=== PATIENT | female | born 1970 | race Caucasian/White ===

== ENCOUNTER 2016-10-08 03:39 | Emergency (ER) | payer MEDICARE, MEDICAID ==
[~2016-10-08] VITALS: Ht 160 cm; Wt 81.6 kg
[~2016-10-08 03:39] MED LIST: ARIP20TA8 PO; DULO60CA45 PO; QUET200T PO; TRAZ-147 PO
[2016-10-08 03:57] VITALS: BP 133/79
== END 2016-10-08 05:05 | disposition left against medical advice (07) ==
LOC: ER 03:47
DX: Z53.21 Procedure and treatment not carried out due to patient leaving prior to being seen by health care provider (principal)
CPT/HCPCS: A4606; Z7610

== ENCOUNTER 2016-10-11 17:32 | Emergency (ER) | payer MEDICARE, MEDICAID ==
[~2016-10-11] VITALS: Ht 165.1 cm; Wt 81.6 kg
[2016-10-11 20:23] LABS: BASOPHILS % (AUTO) 0.3 % (0.0-2.0); DIFF TOTAL % 100 %; EOSINOPHILS # (AUTO) 0.3 /CMM (0.0-0.7); EOSINOPHILS % (AUTO) 2.7 % (0.0-6.0); HEMATOCRIT 35 % (33-45); HEMOGLOBIN 12.6 g/dL (11.5-14.8); LYMPHOCYTES # (AUTO) 2.1 /CMM (0.8-4.8); LYMPHOCYTES % (AUTO) 21.2 % (20.0-44.0); MEAN CORPUSCULAR HEMOGLOBIN 34 PG (26.0-33.0); MEAN CORPUSCULAR HGB CONC 36 g/dl (31.0-36.0); MEAN CORPUSCULAR VOLUME 96 fL (82-100); MONOCYTES # (AUTO) 0.8 /CMM (0.1-1.30); MONOCYTES % (AUTO) 7.8 % (2.0-12.0); NEUTROPHILS # (AUTO) 6.8 /CMM (1.8-8.9); PLATELET COUNT (AUTO) 235 /CMM (150-450); WHITE BLOOD COUNT (AUTO) 9.9 K/uL (4.3-11.0)
[2016-10-11 20:29] LABS: ANION GAP 10 (5-14); CALCIUM, SERUM 8.9 mg/dL (8.5-10.1); CARBON DIOXIDE 31 mmol/L (21-32); CHLORIDE 103 mmol/L (98-107); CREATININE 0.7 mg/dL (0.6-1.3); GFR 90 mL/min (>60); GLUCOSE 110 mg/dL (74-106); POTASSIUM 3.8 mmol/L (3.5-5.1); SODIUM SERUM 140 mmol/L (136-145); UREA NITROGEN, BLOOD 9 mg/dL (7-18)
[2016-10-11 20:47] LABS: ALANINE AMINOTRANSFERASE 38 U/L (12-78); ALBUMIN 3.5 g/dL (3.4-5.0); ASPARTATE AMINOTRANSFERASE 20 U/L (15-37); BILIRUBIN,DIRECT 0.1 mg/dL (0.0-0.2); BILIRUBIN,TOTAL 0.3 mg/dL (0.2-1.0); INDIRECT BILIRUBIN 0.2 mg/dL (0.0-1.1); SALICYLATE 4.9 mg/dL (2.8-20.0); TOTAL PROTEIN, SERUM 7.1 g/dL (6.4-8.2)
[2016-10-11 21:00] LABS: ACETAMINOPHEN 0 ug/ml (10-30)
[2016-10-11] MEDS ORDERED: LORAZEPAM 1 MG TABLET ONE (21:17)
[2016-10-11 21:26] LABS: KETONES,URINE TRACE (NEGATIVE); LEUKOCYTE ESTERASE ,URINE TRACE (NEGATIVE)
[2016-10-11] MEDS ORDERED: LORAZEPAM 1 MG TABLET PO ONE (21:30)
[2016-10-11 21:31] LABS: CANNABINOID, URINE NEGATIVE (NEGATIVE); PHENCYCLIDINE SCREEN,URINE NEGATIVE (NEGATIVE)
[2016-10-11 21:38] LABS: ADD UA MICROSCOPIC YES
[2016-10-11 21:48] LABS: ADD URINE CULTURE NO; RBC,URINE 0-2 /HPF (0-2); WBC,URINE 0-2 /HPF (0-3)
[2016-10-11] MEDS ORDERED: OLANZAPINE 10 MG VIAL IM ONE ×2 (21:53→22:00)
[2016-10-11 22:55] VITALS: BP 131/80
== END 2016-10-11 23:05 ==
LOC: ER 17:34
DX: F20.0 Paranoid schizophrenia (principal); F32.9 Major depressive disorder, single episode, unspecified; K21.9 Gastro-esophageal reflux disease without esophagitis; F17.200 Nicotine dependence, unspecified, uncomplicated; Z88.2 Allergy status to sulfonamides
CPT/HCPCS: 36415; 73564; 80048; 80076; 80305; 81001; 84703; 85025; 96372; 99285; A4606; G0480; G0481; G0482; J3490; 81000-TC; G6038-TC; G6039-TC; G6040-TC; Z7610

== ENCOUNTER 2017-01-29 09:49 | Emergency (ER) | payer MEDICARE, MEDICAID ==
[~2017-01-29] VITALS: Ht 167.6 cm; Wt 72.6 kg
--- NOTE | 2017-01-29 10:05 | NUR ---
PT BIB SELF VERBALIZED "SOMEONE AND IM SUICIDAL." NO HI. NO PLANS ON SI DOESNT WANT TO TALK ABOUT IT. VSS. AWAITING MD ORDER.
--- NOTE | 2017-01-29 10:31 | NUR ---
AT BEDSIDE FOR EVAL
[2017-01-29 10:56] LABS: BASOPHILS % (AUTO) 0.5 % (0.0-2.0); EOSINOPHILS # (AUTO) 0.1 /CMM (0.0-0.7); EOSINOPHILS % (AUTO) 1.3 % (0.0-6.0); HEMATOCRIT 43 % (33-45); HEMOGLOBIN 14.9 g/dL (11.5-14.8); LYMPHOCYTES % (AUTO) 28.3 % (20.0-44.0); MEAN CORPUSCULAR HEMOGLOBIN 32 PG (26.0-33.0); MEAN CORPUSCULAR HGB CONC 35 g/dl (31.0-36.0); MEAN CORPUSCULAR VOLUME 93 fL (82-100); MONOCYTES # (AUTO) 0.5 /CMM (0.1-1.30); NEUTROPHILS # (AUTO) 4.3 /CMM (1.8-8.9); NEUTROPHILS % (AUTO) 62.9 % (43.0-81.0); PLATELET COUNT (AUTO) 257 /CMM (150-450); RDW COEFFICIENT OF VARIATION 13.2 (11.5-15.0); RED BLOOD CELL COUNT(AUTO) 4.62 MIL/uL (4.0-5.2); WHITE BLOOD COUNT (AUTO) 6.9 K/uL (4.3-11.0)
[2017-01-29 11:02] LABS: CALCIUM, SERUM 9.1 mg/dL (8.5-10.1); CARBON DIOXIDE 29 mmol/L (21-32); CHLORIDE 104 mmol/L (98-107); CREATININE 0.7 mg/dL (0.6-1.3); GFR 90 mL/min (>60); GLUCOSE 95 mg/dL (74-106); POTASSIUM 3.9 mmol/L (3.5-5.1); SODIUM SERUM 139 mmol/L (136-145); UREA NITROGEN, BLOOD 10 mg/dL (7-18)
[2017-01-29 11:07] LABS: ALANINE AMINOTRANSFERASE 29 U/L (12-78); ALBUMIN 3.9 g/dL (3.4-5.0); ALCOHOL, BLOOD < 3 mg/dL (0-0); ALKALINE PHOSPHATASE 122 U/L (46-116); ASPARTATE AMINOTRANSFERASE 19 U/L (15-37); BILIRUBIN,DIRECT 0.1 mg/dL (0.0-0.2); BILIRUBIN,TOTAL 0.4 mg/dL (0.2-1.0); SALICYLATE 5.3 mg/dL (2.8-20.0); TOTAL PROTEIN, SERUM 7.5 g/dL (6.4-8.2)
[2017-01-29 11:08] LABS: ACETAMINOPHEN 0 ug/ml (10-30)
[2017-01-29 11:54] LABS: APPEARANCE,URINE Clear (CLEAR); BILIRUBIN,URINE Negative (NEGATIVE); BLOOD, URINE Negative Ery/uL (NEGATIVE); COLOR,URINE Yellow (YELLOW); KETONES,URINE Negative (NEGATIVE); LEUKOCYTE ESTERASE ,URINE Negative (NEGATIVE); NITRITE, URINE Negative (NEGATIVE); PROTEIN,URINE Negative (NEGATIVE); UGLUCOSE Negative (NEGATIVE); UROBILINOGEN,URINE 0.2 EU/dL (0.2)
--- NOTE | 2017-01-29 12:01 | NUR ---
CALLED [facility] FOR PSYCH EVAL, ETA 1 HOUR
[2017-01-29 12:15] LABS: CANNABINOID, URINE NEGATIVE (NEGATIVE); PHENCYCLIDINE SCREEN,URINE NEGATIVE (NEGATIVE)
--- NOTE | 2017-01-29 13:00 | NUR ---
[facility] PSYCH EVAL AT BEDSIDE
--- NOTE | 2017-01-29 16:29 | NUR ---
PT DISCHARGE . NO IMMINENT THREAT TO SELF AND OTHERS. DENIES SI AND HI. SEEN BY [facility] RAIL CAR WELDER ONLY AVAILABLE BED IN [place]. PT REFUSED LEFT VOLUNTARY. STABLE CONDITION.
[2017-01-29 16:31] VITALS: BP 120/70
== END 2017-01-29 16:31 | disposition home or self-care (01) ==
LOC: ER 09:52
DX: F32.9 Major depressive disorder, single episode, unspecified (principal); F20.0 Paranoid schizophrenia; R45.851 Suicidal ideations; F17.200 Nicotine dependence, unspecified, uncomplicated; F31.9 Bipolar disorder, unspecified; K21.9 Gastro-esophageal reflux disease without esophagitis; Z59.0 Homelessness; Z88.2 Allergy status to sulfonamides
CPT/HCPCS: 36415; 80048-TC; 80076-TC; 80305; 81000-TC; 84703-TC; 85025-TC; A4606; G0480; G6039-TC; Z7610

== ENCOUNTER 2017-03-15 07:34 | Emergency (ER) | payer MEDICAID, MEDICARE ==
[~2017-03-15] VITALS: Ht 167.6 cm; Wt 74.8 kg
[2017-03-15] MEDS ORDERED: LORAZEPAM 1 MG TABLET ONE (07:49)
--- NOTE | 2017-03-15 07:50 | NUR ---
pt to ed room 08. L KNEE PAIN X 5 YEARS. SUICIDAL IDEATION WITH NO PLAN. a/a/o. vs wnl. side rails up. hob elevated. SI precautiosn initiated. personal belongigs moved from patient's room. seen and evaluated by ed provider.
--- NOTE | 2017-03-15 07:56 | NUR ---
SAIL FINISHER HAND AT BEDSIDE
[2017-03-15] MEDS ORDERED: LORAZEPAM 1 MG TABLET PO ONE (08:00)
[2017-03-15 08:10] LABS: CREATININE 0.5 mg/dL (0.6-1.3); POTASSIUM 3.7 mmol/L (3.5-5.1)
[2017-03-15 08:16] LABS: ALBUMIN 3.7 g/dL (3.4-5.0); BILIRUBIN,DIRECT 0.1 mg/dL (0.0-0.2); BILIRUBIN,TOTAL 0.3 mg/dL (0.2-1.0); SALICYLATE 5.8 mg/dL (2.8-20.0); TOTAL PROTEIN, SERUM 7.3 g/dL (6.4-8.2)
[2017-03-15 08:22] LABS: BASOPHILS # (AUTO) 0.1 /CMM (0.0-0.2); BASOPHILS % (AUTO) 1.7 % (0.0-2.0); EOSINOPHILS # (AUTO) 0.1 /CMM (0.0-0.7); EOSINOPHILS % (AUTO) 0.9 % (0.0-6.0); HEMATOCRIT 42 % (33-45); HEMOGLOBIN 14.6 g/dL (11.5-14.8); LYMPHOCYTES # (AUTO) 1.6 /CMM (0.8-4.8); LYMPHOCYTES % (AUTO) 20.2 % (20.0-44.0); MEAN CORPUSCULAR HEMOGLOBIN 32 PG (26.0-33.0); MEAN CORPUSCULAR HGB CONC 35 g/dl (31.0-36.0); MEAN CORPUSCULAR VOLUME 93 fL (82-100); MONOCYTES # (AUTO) 0.5 /CMM (0.1-1.30); MONOCYTES % (AUTO) 6.2 % (2.0-12.0); NEUTROPHILS # (AUTO) 5.6 /CMM (1.8-8.9); PLATELET COUNT (AUTO) 198 /CMM (150-450); RDW COEFFICIENT OF VARIATION 13.9 (11.5-15.0); RED BLOOD CELL COUNT(AUTO) 4.51 MIL/uL (4.0-5.2); WHITE BLOOD COUNT (AUTO) 7.9 K/uL (4.3-11.0)
--- NOTE | 2017-03-15 08:59 | NUR ---
Patient is resting comfortably in bed with eyes closed. Easily aroused. VSS
--- NOTE | 2017-03-15 09:10 | NUR ---
urine sample collected from patient and send to lab.
[2017-03-15 09:20] LABS: APPEARANCE,URINE Clear (CLEAR); BILIRUBIN,URINE Negative (NEGATIVE); BLOOD, URINE Negative Ery/uL (NEGATIVE); COLOR,URINE Yellow (YELLOW); KETONES,URINE Negative (NEGATIVE); LEUKOCYTE ESTERASE ,URINE Negative (NEGATIVE); NITRITE, URINE Negative (NEGATIVE); PH,URINE 5.5 (5.0-8.0); PROTEIN,URINE Negative (NEGATIVE); UGLUCOSE Negative (NEGATIVE); UROBILINOGEN,URINE 0.2 EU/dL (0.2)
--- NOTE | 2017-03-15 09:25 | NUR ---
ALEJANDRA OSBORNW AT BEDSIDE FOR PET EVALUATION
[2017-03-15 09:29] VITALS: BP 141/78
--- NOTE | 2017-03-15 09:29 | NUR ---
Patient discharged to home in stable condition. Written and verbal after care instructions given. Patient verbalizes understanding of instruction.
== END 2017-03-15 09:30 | disposition home or self-care (01) ==
LOC: ER 07:35
DX: F20.0 Paranoid schizophrenia (principal); F32.9 Major depressive disorder, single episode, unspecified; K21.9 Gastro-esophageal reflux disease without esophagitis; F17.200 Nicotine dependence, unspecified, uncomplicated; Z88.2 Allergy status to sulfonamides
CPT/HCPCS: 36415; 80048-TC; 80076-TC; 80305; 81000-TC; 85025-TC; A4606; G0480; Z7610

== ENCOUNTER 2017-04-26 16:57 | Emergency (ER) | payer MEDICARE, MEDICAID ==
[~2017-04-26] VITALS: Ht 170.2 cm; Wt 79.4 kg
[2017-04-26 17:00] VITALS: BP 120/70
== END 2017-04-26 19:21 | disposition home or self-care (01) ==
LOC: ER 16:59
DX: Z76.0 Encounter for issue of repeat prescription (principal); F20.0 Paranoid schizophrenia; F32.9 Major depressive disorder, single episode, unspecified; K21.9 Gastro-esophageal reflux disease without esophagitis; Z59.0 Homelessness; F17.200 Nicotine dependence, unspecified, uncomplicated; Z88.2 Allergy status to sulfonamides
CPT/HCPCS: A4606; Z7610

== ENCOUNTER 2017-05-25 07:07 | Emergency (ER) | payer MEDICARE, MEDICAID ==
[~2017-05-25] VITALS: Ht 165.1 cm; Wt 74.8 kg
--- NOTE | 2017-05-25 07:10 | NUR ---
TO BED 8 A 46 YO FEMALE [id number]: PT WALKED IN TO THE FIRE STATION, PSYCHOTIC, NO VERBAL COMPLAINS. PATIENT REFUSE TO ANSWER QUESTIONS. VSS. NAD NOTED. NON DIAPHORETIC. BREATHING EVEN AND UNLABORED. SAFETY MEAURES IN PLACE. COMFORT MEASURES RENDERED. AWAITING FOR ER MD HURST.
--- NOTE | 2017-05-25 07:15 | NUR ---
PATIENT FOUND BY HOSPITAL STAFF ON THE FLOOR ON GRAND MAL SEIZURE. MAINTAINED PATENT AIRWAY, SUCTIONED PRN. PLACED ON NONREBREATHER MASK 100% OXYGEN. DR ALFRED AT BEDSIDE. CARDIAC AND VS MONITORING. SEIZURE PRECAUTIONS INITIATED. WILL CLOSELY MONITOR.
[2017-05-25] MEDS ORDERED: IV NS 0.9% 1,000 ML BAG IV ONE (07:30)
[2017-05-25] MEDS ORDERED: LEVETIRACETAM (500MG) 500 MG in IV NS 0.9% 100 ML IV ONE (07:30)
[2017-05-25 07:39] LABS: BASOPHILS % (AUTO) 0.4 % (0.0-2.0); EOSINOPHILS # (AUTO) 0.1 /CMM (0.0-0.7); HEMATOCRIT 43 % (33-45); HEMOGLOBIN 14.7 g/dL (11.5-14.8); LYMPHOCYTES # (AUTO) 3.2 /CMM (0.8-4.8); LYMPHOCYTES % (AUTO) 25.9 % (20.0-44.0); MEAN CORPUSCULAR HEMOGLOBIN 34 PG (26.0-33.0); MEAN CORPUSCULAR HGB CONC 35 g/dl (31.0-36.0); MEAN CORPUSCULAR VOLUME 98 fL (82-100); MONOCYTES # (AUTO) 0.9 /CMM (0.1-1.30); MONOCYTES % (AUTO) 7.1 % (2.0-12.0); NEUTROPHILS # (AUTO) 8.2 /CMM (1.8-8.9); NEUTROPHILS % (AUTO) 65.6 % (43.0-81.0); PLATELET COUNT (AUTO) 248 /CMM (150-450); RDW COEFFICIENT OF VARIATION 14.2 (11.5-15.0); RED BLOOD CELL COUNT(AUTO) 4.37 MIL/uL (4.0-5.2); WHITE BLOOD COUNT (AUTO) 12.4 K/uL (4.3-11.0)
[2017-05-25] MEDS ORDERED: LORAZEPAM INJ 2 MG/ML VIAL ONE (07:44)
--- NOTE | 2017-05-25 07:49 | NUR ---
PT BROUGHT TO CT FOR CT HEAD AND C-SPINE. PATIENT UNCOOPERATIVE AND UNABLE TO HOLD STILL. PATIENT WAS RETURNED TO ED WITHOUT SCANNING. RN AWARE AND WILL CALL BACK WHEN PATIENT IS READY.
--- NOTE | 2017-05-25 07:55 | NUR ---
ATIVAN 1 MG GIVEN IVP ON THE RWRIST G18.
[2017-05-25 07:58] LABS: CALCIUM, SERUM 8.8 mg/dL (8.5-10.1)
[2017-05-25] MEDS ORDERED: LORAZEPAM INJ 2 MG/ML VIAL IV ONE (08:00)
[2017-05-25 08:04] LABS: ALBUMIN 4.4 g/dL (3.4-5.0); BILIRUBIN,DIRECT 0.1 mg/dL (0.0-0.2); BILIRUBIN,TOTAL 0.8 mg/dL (0.2-1.0); SALICYLATE 5.2 mg/dL (2.8-20.0); TOTAL PROTEIN, SERUM 8.2 g/dL (6.4-8.2)
--- NOTE | 2017-05-25 08:08 | NUR ---
PT REFUSES TO GIVE URINE SAMPLE. MADE AWARE.
--- NOTE | 2017-05-25 08:18 | NUR ---
PT TAKEN TO CT
[2017-05-25] MEDS ORDERED: POTASSIUM CHLORIDE 20 MEQ TAB.PRT.SR PO ONE ×2 (08:30→08:36)
[2017-05-25] MEDS ORDERED: CARBAMAZEPINE 200 MG TABLET PO ONE (09:00)
[2017-05-25] MEDS ORDERED: CARBAMAZEPINE 200 MG TABLET ONE (09:10)
--- NOTE | 2017-05-25 09:45 | NUR ---
Patient is laying comfortably in her bed, more warm blanket provided for comfort.
--- NOTE | 2017-05-25 11:20 | NUR ---
Patient is resting comfortably in bed with eyes closed. Easily aroused. VSS
--- NOTE | 2017-05-25 12:15 | NUR ---
Patient is resting comfortably in bed with eyes closed. Easily aroused. VSS
--- NOTE | 2017-05-25 13:40 | NUR ---
IV removed. Catheter intact and site benign. Pressure and 4x4 applied to site. No bleeding noted.
[2017-05-25] MEDS ORDERED: OLANZAPINE 10 MG VIAL IM ONE (14:00)
--- NOTE | 2017-05-25 14:04 | NUR ---
Patient discharged to home in stable condition. Written and verbal after care instructions given. Patient verbalizes understanding of instruction. Patient denies SI/HI. Patient refused to sign discharge paper.
[2017-05-25 14:06] VITALS: BP 131/79
== END 2017-05-25 14:07 | disposition home or self-care (01) ==
LOC: ER 07:09
DX: G40.909 Epilepsy, unspecified, not intractable, without status epilepticus (principal); F20.0 Paranoid schizophrenia; F32.9 Major depressive disorder, single episode, unspecified; K21.9 Gastro-esophageal reflux disease without esophagitis; F17.200 Nicotine dependence, unspecified, uncomplicated; R51 Headache; E87.6 Hypokalemia; Z88.2 Allergy status to sulfonamides; Z59.0 Homelessness
CPT/HCPCS: 36415; 70450-TC; 72125-TC; 80048-TC; 80076-TC; 82550-TC; 82962-TC; 85025-TC; A4606; G0480; J1953; J2060; J7030; Z7610

== ENCOUNTER 2017-07-02 22:26 | Emergency (ER) | payer MEDICAID, MEDICARE ==
[~2017-07-02] VITALS: Ht 172.7 cm; Wt 81.6 kg
[2017-07-02 22:46] VITALS: BP 128/73
== END 2017-07-03 06:06 | disposition left against medical advice (07) ==
LOC: ER 22:29
DX: Z53.21 Procedure and treatment not carried out due to patient leaving prior to being seen by health care provider (principal)
CPT/HCPCS: A4606; Z7610

== ENCOUNTER 2017-08-31 09:07 | Emergency (ER) | payer MEDICARE ==
[~2017-08-31] VITALS: Ht 167.6 cm; Wt 72.6 kg
[2017-08-31 09:30] VITALS: BP 138/78
[2017-08-31 11:08] LABS: APPEARANCE,URINE Clear (CLEAR); BILIRUBIN,URINE Negative (NEGATIVE); BLOOD, URINE Negative Ery/uL (NEGATIVE); COLOR,URINE Yellow (YELLOW); KETONES,URINE Negative (NEGATIVE); LEUKOCYTE ESTERASE ,URINE Negative (NEGATIVE); NITRITE, URINE Negative (NEGATIVE); PROTEIN,URINE Negative (NEGATIVE); UGLUCOSE Negative (NEGATIVE); UROBILINOGEN,URINE 0.2 EU/dL (0.2)
== END 2017-08-31 13:18 | disposition home or self-care (01) ==
LOC: ER 09:10
DX: Z02.89 Encounter for other administrative examinations (principal); K21.9 Gastro-esophageal reflux disease without esophagitis; F32.9 Major depressive disorder, single episode, unspecified; F43.10 Post-traumatic stress disorder, unspecified; F17.290 Nicotine dependence, other tobacco product, uncomplicated; F20.0 Paranoid schizophrenia; Z88.2 Allergy status to sulfonamides; Z59.0 Homelessness
CPT/HCPCS: 81000-TC; 84703-TC; A4606; Z7610

== ENCOUNTER 2017-12-17 19:46 | Emergency (ER) | payer MEDICARE, MEDICAID ==
[~2017-12-17] VITALS: Ht 162.6 cm; Wt 70.3 kg
[~2017-12-17 19:46] MED LIST changes: +ARIP20TA4 PO; -ARIP20TA8 PO
--- NOTE | 2017-12-17 20:00 | NUR ---
TO BED 9 A 47 YO FEMALE PT BIBRA 39 FOUND ALTERED ON THE STREETS X 1 HR. PT AWAKE, ALERT AND RESPONSIVE ON ARRIVAL, REFUSED TO ANSWER QUESTIONS, DOES NOT FOLLOW INSTRUCTIONS. VSS. NO SOB. SKIN WARM AND DRY. SAFETY MEASURES IN PLACE.
--- NOTE | 2017-12-17 20:10 | NUR ---
PATIENT REFUSED TO PROVIDE SAMPLE OF URINE INSPITE HEALTH TEACHINGS AND ENCOURAGEMENT.
--- NOTE | 2017-12-17 20:34 | NUR ---
PT COMBATIVE, ER WILL CALL WHEN READY FOR CT SCAN.
[2017-12-17 20:37] LABS: BASOPHILS # (AUTO) 0.1 /CMM (0.0-0.2); BASOPHILS % (AUTO) 0.5 % (0.0-2.0); EOSINOPHILS # (AUTO) 0.1 /CMM (0.0-0.7); EOSINOPHILS % (AUTO) 0.7 % (0.0-6.0); HEMATOCRIT 42 % (33-45); HEMOGLOBIN 14.8 g/dL (11.5-14.8); LYMPHOCYTES # (AUTO) 1.2 /CMM (0.8-4.8); LYMPHOCYTES % (AUTO) 11.4 % (20.0-44.0); MEAN CORPUSCULAR HEMOGLOBIN 33 PG (26.0-33.0); MEAN CORPUSCULAR HGB CONC 36 g/dl (31.0-36.0); MEAN CORPUSCULAR VOLUME 92 fL (82-100); MONOCYTES # (AUTO) 0.8 /CMM (0.1-1.30); MONOCYTES % (AUTO) 7.2 % (2.0-12.0); NEUTROPHILS # (AUTO) 8.4 /CMM (1.8-8.9); NEUTROPHILS % (AUTO) 80.2 % (43.0-81.0); PLATELET COUNT (AUTO) 250 /CMM (150-450); RDW COEFFICIENT OF VARIATION 13.7 (11.5-15.0); RED BLOOD CELL COUNT(AUTO) 4.49 MIL/uL (4.0-5.2); WHITE BLOOD COUNT (AUTO) 10.6 K/uL (4.3-11.0)
[2017-12-17 20:48] LABS: CALCIUM, SERUM 9.2 mg/dL (8.5-10.1); CARBON DIOXIDE 28 mmol/L (21-32); CHLORIDE 100 mmol/L (98-107); CREATININE 0.8 mg/dL (0.6-1.3); GLUCOSE 139 mg/dL (74-106); POTASSIUM 3.9 mmol/L (3.5-5.1); SODIUM SERUM 138 mmol/L (136-145); UREA NITROGEN, BLOOD 13 mg/dL (7-18)
[2017-12-17 21:04] LABS: ALANINE AMINOTRANSFERASE 40 U/L (12-78); ALBUMIN 4.1 g/dL (3.4-5.0); ALCOHOL, BLOOD < 3 mg/dL (0-0); ALKALINE PHOSPHATASE 117 U/L (46-116); ASPARTATE AMINOTRANSFERASE 32 U/L (15-37); BILIRUBIN,DIRECT 0.2 mg/dL (0.0-0.2); BILIRUBIN,TOTAL 0.6 mg/dL (0.2-1.0); SALICYLATE 3.8 mg/dL (2.8-20.0); TOTAL PROTEIN, SERUM 8.2 g/dL (6.4-8.2)
--- NOTE | 2017-12-17 21:04 | NUR ---
CHANGE ROOM ATTENDANT UNABLE TO DO CT ON PATIENT, PATIENT REFUSED TO FOLLOW INSTRUCTIONS.
[2017-12-17 21:05] LABS: ACETAMINOPHEN 0 ug/ml (10-30)
--- NOTE | 2017-12-17 21:11 | NUR ---
Patient discharged to home in stable condition. Written and verbal after care instructions given. Patient refused to sign discharge papers. Patient is ambulatory with steady gait, vss. nad noted.
[2017-12-17 21:16] VITALS: BP 123/70
== END 2017-12-17 21:16 | disposition home or self-care (01) ==
LOC: ER 19:47
DX: S05.12XA Contusion of eyeball and orbital tissues, left eye, initial encounter (principal); S05.11XA Contusion of eyeball and orbital tissues, right eye, initial encounter; F20.0 Paranoid schizophrenia; F43.10 Post-traumatic stress disorder, unspecified; K21.9 Gastro-esophageal reflux disease without esophagitis; F10.10 Alcohol abuse, uncomplicated; F31.9 Bipolar disorder, unspecified; F17.200 Nicotine dependence, unspecified, uncomplicated; Z88.2 Allergy status to sulfonamides; Z88.8 Allergy status to other drugs, medicaments and biological substances; X58.XXXA Exposure to other specified factors, initial encounter; Y93.89 Activity, other specified; Y92.89 Other specified places as the place of occurrence of the external cause; Y99.8 Other external cause status
CPT/HCPCS: 36415; 80048-TC; 80076-TC; 85025-TC; A4606; G0480; Z7610

== ENCOUNTER 2017-12-18 01:48 | Emergency (ER) | payer MEDICARE ==
[~2017-12-18] VITALS: Ht 170.2 cm; Wt 67.1 kg
--- NOTE | 2017-12-18 02:24 | NUR ---
CALLED PT NAME X 3 IN WAITING ROOM. PT STATES SHE WANTS TO SLEEP AND NOT BE BOTHERED. RISK AND BENEFITS EXPLAINED X3. PT REFUSED AT THIS TIME.
[2017-12-18 03:09] VITALS: BP 148/68
--- NOTE | 2017-12-18 03:33 | NUR ---
Patient eloped from facility. ER MD notified.
== END 2017-12-18 03:36 | disposition left against medical advice (07) ==
LOC: ER 01:49
DX: Z53.21 Procedure and treatment not carried out due to patient leaving prior to being seen by health care provider (principal)
CPT/HCPCS: A4606; Z7610

== ENCOUNTER 2017-12-25 12:47 | Emergency (ER) | payer MEDICARE, MEDICAID ==
[~2017-12-25] VITALS: Ht 170.2 cm; Wt 77.1 kg
[~2017-12-25 12:47] MED LIST changes: -TRAZ-147 PO; +TRAZ-214 PO
[2017-12-25] MEDS ORDERED: LORAZEPAM 1 MG TABLET ONE (13:22)
[2017-12-25] MEDS ORDERED: LORAZEPAM 1 MG TABLET PO ONE (13:30)
[2017-12-25] MEDS ORDERED: QUETIAPINE FUMARATE 100 MG TABLET PO STA (13:32)
[2017-12-25] MEDS ORDERED: QUETIAPINE FUMARATE 25 MG TABLET ONE (13:34)
== END 2017-12-25 13:40 | disposition home or self-care (01) ==
LOC: ER 12:48
DX: B00.1 Herpesviral vesicular dermatitis (principal); F41.9 Anxiety disorder, unspecified; K21.9 Gastro-esophageal reflux disease without esophagitis; F32.9 Major depressive disorder, single episode, unspecified; F43.10 Post-traumatic stress disorder, unspecified; F20.0 Paranoid schizophrenia; F17.290 Nicotine dependence, other tobacco product, uncomplicated; Z88.2 Allergy status to sulfonamides; Z59.0 Homelessness
CPT/HCPCS: A4606

== ENCOUNTER 2017-12-27 11:49 | Emergency (ER) | payer MEDICARE, MEDICAID ==
[~2017-12-27] VITALS: Ht 167.6 cm; Wt 68.0 kg
--- NOTE | 2017-12-27 11:54 | NUR ---
UNABLE TO OBTAIN VS, PT TOO PSYCHOTIC/REFUSES
[2017-12-27] MEDS ORDERED: HALOPERIDOL LACTATE INJ 5 MG/ML VIAL ONE (11:58)
[2017-12-27] MEDS ORDERED: LORAZEPAM INJ 2 MG/ML VIAL ONE (11:58)
[2017-12-27] MEDS ORDERED: LORAZEPAM INJ 2 MG/ML VIAL IM ONE (12:00)
[2017-12-27] MEDS ORDERED: HALOPERIDOL LACTATE INJ 5 MG/ML VIAL IM ONE (12:00)
--- NOTE | 2017-12-27 12:06 | NUR ---
Pt medicated with ativan and haldol. Will continue to monitor.
[2017-12-27] MEDS ORDERED: LORAZEPAM 1 MG TABLET ONE (12:14)
--- NOTE | 2017-12-27 12:27 | NUR ---
Patient continously screaming and yelling for no apparent reason.
[2017-12-27] MEDS ORDERED: LORAZEPAM 1 MG TABLET PO ONE (12:30)
[2017-12-27] MEDS ORDERED: QUETIAPINE FUMARATE 100 MG TABLET PO SCH (12:30)
--- NOTE | 2017-12-27 12:53 | NUR ---
Patient discharged to home in stable condition. Written and verbal after care instructions given. Patient verbalizes understanding of instruction.
== END 2017-12-27 12:55 | disposition home or self-care (01) ==
LOC: ER 11:51
DX: F29 Unspecified psychosis not due to a substance or known physiological condition (principal); K21.9 Gastro-esophageal reflux disease without esophagitis; F32.9 Major depressive disorder, single episode, unspecified; F43.10 Post-traumatic stress disorder, unspecified; F20.0 Paranoid schizophrenia; F17.200 Nicotine dependence, unspecified, uncomplicated; F10.10 Alcohol abuse, uncomplicated; Z88.2 Allergy status to sulfonamides; Z88.8 Allergy status to other drugs, medicaments and biological substances
CPT/HCPCS: J1630; J2060

== ENCOUNTER 2018-01-24 20:52 | Emergency (ER) | payer MEDICARE, MEDICAID ==
[~2018-01-24] VITALS: Ht 167.6 cm; Wt 77.1 kg
--- NOTE | 2018-01-24 21:06 | NUR ---
Srirma moran in [facility] - 01/24/18 at 2117 by NIKOLAY CALLED; NO ANSWER
--- NOTE | 2018-01-24 21:06 | NUR ---
CALLED; NO ANSWER. INFORMIED BY ADMITTING "PT SAID SHE WILL BE BACK"
--- NOTE | 2018-01-24 21:25 | NUR ---
CALLED PT NAME IN WR X3. NO ONE IN WR AT THIS TIME.
[2018-01-24 21:48] VITALS: BP 118/77
[2018-01-24 23:01] LABS: APPEARANCE,URINE SL CLOUDY (CLEAR); BILIRUBIN,URINE NEGATIVE (NEGATIVE); BLOOD, URINE TRACE-INTA Ery/uL (NEGATIVE); COLOR,URINE YELLOW (YELLOW); KETONES,URINE NEGATIVE (NEGATIVE); LEUKOCYTE ESTERASE ,URINE NEGATIVE (NEGATIVE); NITRITE, URINE NEGATIVE (NEGATIVE); PROTEIN,URINE NEGATIVE (NEGATIVE); UGLUCOSE NEGATIVE (NEGATIVE); UROBILINOGEN,URINE 0.2 EU/dL (0.2)
[2018-01-24 23:18] LABS: WBC,URINE 0-2 /HPF (0-3)
[2018-01-24 23:19] LABS: BACTERIA,URINE Few /HPF (None Seen); MUCUS,URINE Moderate /LPF (None Seen); SQUAMOUS EPITHELIAL CELL,UR Few /HPF (None Seen)
== END 2018-01-25 00:03 | disposition home or self-care (01) ==
LOC: ER 20:54
DX: R30.0 Dysuria (principal); R19.7 Diarrhea, unspecified; F20.0 Paranoid schizophrenia; F43.10 Post-traumatic stress disorder, unspecified; K21.9 Gastro-esophageal reflux disease without esophagitis; F10.10 Alcohol abuse, uncomplicated; F41.9 Anxiety disorder, unspecified; F17.200 Nicotine dependence, unspecified, uncomplicated; F31.9 Bipolar disorder, unspecified; Z59.0 Homelessness; Z88.2 Allergy status to sulfonamides; Z76.0 Encounter for issue of repeat prescription; Z88.8 Allergy status to other drugs, medicaments and biological substances
CPT/HCPCS: 81000-TC; A4606; Z7610

== ENCOUNTER 2018-03-08 18:39 | Emergency (ER) | payer MEDICARE, MEDICAID ==
[~2018-03-08] VITALS: Ht 165.1 cm; Wt 74.8 kg
--- NOTE | 2018-03-08 18:40 | NUR ---
BIB RA 39, WANDERING IN A STREET, HITTING HER HEAD AGAINST CONCRETE, COMBATIVE NAD NOTED, VSS, RESP EVEN AND UNLABORED, PT WAS PUT ON MONITOR, WAITING FOR MD HURST.
[2018-03-08 19:18] LABS: BASOPHILS # (AUTO) 0.1 /CMM (0.0-0.2); BASOPHILS % (AUTO) 0.6 % (0.0-2.0); EOSINOPHILS % (AUTO) 0.8 % (0.0-6.0); HEMATOCRIT 44 % (33-45); HEMOGLOBIN 15.2 g/dL (11.5-14.8); LYMPHOCYTES # (AUTO) 1.7 /CMM (0.8-4.8); LYMPHOCYTES % (AUTO) 18.7 % (20.0-44.0); MEAN CORPUSCULAR HGB CONC 35 g/dl (31.0-36.0); MEAN CORPUSCULAR VOLUME 92 fL (82-100); MONOCYTES # (AUTO) 0.9 /CMM (0.1-1.30); MONOCYTES % (AUTO) 9.8 % (2.0-12.0); NEUTROPHILS # (AUTO) 6.2 /CMM (1.8-8.9); NEUTROPHILS % (AUTO) 70.1 % (43.0-81.0); PLATELET COUNT (AUTO) 240 /CMM (150-450); RDW COEFFICIENT OF VARIATION 12.4 (11.5-15.0); RED BLOOD CELL COUNT(AUTO) 4.76 MIL/uL (4.0-5.2)
[2018-03-08] MEDS ORDERED: HALOPERIDOL LACTATE INJ 5 MG/ML VIAL ONE (19:44)
[2018-03-08] MEDS ORDERED: diphenhydrAMINE HCL 50 MG/ML VIAL ONE (19:44)
[2018-03-08] MEDS ORDERED: LORAZEPAM INJ 2 MG/ML VIAL ONE (19:44)
[2018-03-08 19:45] LABS: ALANINE AMINOTRANSFERASE 39 U/L (12-78); ALBUMIN 4.1 g/dL (3.4-5.0); ALCOHOL, BLOOD < 3 mg/dL (0-0); ALKALINE PHOSPHATASE 119 U/L (46-116); ASPARTATE AMINOTRANSFERASE 29 U/L (15-37); BILIRUBIN,DIRECT 0.2 mg/dL (0.0-0.2); BILIRUBIN,TOTAL 0.8 mg/dL (0.2-1.0); CALCIUM, SERUM 9.7 mg/dL (8.5-10.1); CARBON DIOXIDE 26 mmol/L (21-32); CHLORIDE 104 mmol/L (98-107); CREATININE 0.7 mg/dL (0.6-1.3); GLUCOSE 97 mg/dL (74-106); POTASSIUM 4.1 mmol/L (3.5-5.1); SALICYLATE 2.7 mg/dL (2.8-20.0); SODIUM SERUM 141 mmol/L (136-145); TOTAL PROTEIN, SERUM 8.1 g/dL (6.4-8.2); UREA NITROGEN, BLOOD 10 mg/dL (7-18)
[2018-03-08 19:46] LABS: ACETAMINOPHEN < 2 ug/ml (10-30)
[2018-03-08 19:51] LABS: THYROID STIMULATING HORMONE 0.349 uIU/mL (0.358-3.74)
[2018-03-08] MEDS ORDERED: LORAZEPAM INJ 2 MG/ML VIAL IV ONE (20:00)
[2018-03-08] MEDS ORDERED: diphenhydrAMINE HCL 50 MG/ML VIAL IM ONE (20:00)
[2018-03-08] MEDS ORDERED: HALOPERIDOL LACTATE INJ 5 MG/ML VIAL IM ONE (20:00)
[2018-03-08] MEDS ORDERED: LORAZEPAM INJ 2 MG/ML VIAL IM ONE (21:00)
--- NOTE | 2018-03-08 21:00 | NUR ---
URINE COLLECTED SENT TO LAB
[2018-03-08 21:12] LABS: APPEARANCE,URINE Clear (CLEAR); BILIRUBIN,URINE SMALL (NEGATIVE); BLOOD, URINE Negative Ery/uL (NEGATIVE); COLOR,URINE Yellow (YELLOW); KETONES,URINE Trace (NEGATIVE); LEUKOCYTE ESTERASE ,URINE Negative (NEGATIVE); NITRITE, URINE Negative (NEGATIVE); PH,URINE 5.5 (5.0-8.0); PROTEIN,URINE 100 mg/dl (NEGATIVE); UGLUCOSE Negative (NEGATIVE); UROBILINOGEN,URINE 0.2 EU/dL (0.2)
[2018-03-08 21:36] LABS: BACTERIA,URINE Rare /HPF (None Seen); RBC,URINE NONE SEEN /HPF (0-2); SQUAMOUS EPITHELIAL CELL,UR Few /HPF (None Seen); WBC,URINE NONE SEEN /HPF (0-3)
--- NOTE | 2018-03-08 22:04 | NUR ---
Patient is resting comfortably in bed with eyes closed. Easily aroused. VSS
--- NOTE | 2018-03-08 22:23 | NUR ---
art at bs
--- NOTE | 2018-03-08 23:23 | NUR ---
Patient is resting comfortably in bed with eyes closed. Easily aroused. pt is on monitor.
--- NOTE | 2018-03-08 23:27 | NUR ---
report given to stacey Castañeda rn.
--- NOTE | 2018-03-09 00:20 | NUR ---
ATTEMPTED TO PLACE PT ON OXYGEN AEB RA SATS 92%; PT REFUSED AND STATED "I DONT NEED OXYGEN. NO RESP DISTRESS NOTED.
--- NOTE | 2018-03-09 01:36 | NUR ---
REMOVED ALL MONITOR LEADS. STATES "LEAVE ME ALONE".
[2018-03-09] MEDS ORDERED: LORAZEPAM INJ 2 MG/ML VIAL ONE (02:05)
[2018-03-09] MEDS ORDERED: LORAZEPAM INJ 2 MG/ML VIAL IM ONE (02:30)
--- NOTE | 2018-03-09 03:07 | NUR ---
GIVEN ICE WATER DEMANDED. PLACED BACK ON MONITOR.
--- NOTE | 2018-03-09 04:18 | NUR ---
LYING SUPINE WITH NO S/S OF DISTRESS. RESP EVEN AND UNLABORED.
[2018-03-09 05:35] VITALS: BP 125/75
--- NOTE | 2018-03-09 05:39 | NUR ---
AWAKE AND IN RESTROOM. DENIES SI OR ANY MEDICAL C/O AT THIS TIME. RESP EVEN AND UNLABORED.
--- NOTE | 2018-03-09 05:44 | NUR ---
SMEARED FEACES EVERYWHERE. GIVEN NEW CLOTHES AND Patient discharged to home in stable condition. Written and verbal after care instructions given. Patient verbalizes understanding of instruction. Ambulatory with a steady gait
== END 2018-03-09 05:45 | disposition home or self-care (01) ==
LOC: ER 18:40
DX: F29 Unspecified psychosis not due to a substance or known physiological condition (principal); K21.9 Gastro-esophageal reflux disease without esophagitis; F32.9 Major depressive disorder, single episode, unspecified; F41.9 Anxiety disorder, unspecified; F43.10 Post-traumatic stress disorder, unspecified; F20.0 Paranoid schizophrenia; F17.200 Nicotine dependence, unspecified, uncomplicated; Z88.8 Allergy status to other drugs, medicaments and biological substances; Z88.2 Allergy status to sulfonamides; Z60.2 Problems related to living alone
CPT/HCPCS: 36415; 80048-TC; 80076-TC; 80305; 81000-TC; 84443-TC; 84703-TC; 85025-TC; A4606; G0480; J1200; J1630; J2060; Z7610

== ENCOUNTER 2018-05-13 14:05 | Emergency (ER) | payer MEDICARE, MEDICAID ==
[~2018-05-13] VITALS: Ht 167.6 cm; Wt 74.8 kg
[2018-05-13 14:05] VITALS: BP 150/99
[2018-05-13 14:30] LABS: BASOPHILS % (AUTO) 0.4 % (0.0-2.0); EOSINOPHILS % (AUTO) 1.3 % (0.0-6.0); HEMATOCRIT 46 % (33-45); HEMOGLOBIN 15.3 g/dL (11.5-14.8); LYMPHOCYTES # (AUTO) 1.9 /CMM (0.8-4.8); LYMPHOCYTES % (AUTO) 29.1 % (20.0-44.0); MEAN CORPUSCULAR HEMOGLOBIN 30 PG (26.0-33.0); MEAN CORPUSCULAR HGB CONC 34 g/dl (31.0-36.0); MEAN CORPUSCULAR VOLUME 91 fL (82-100); MONOCYTES # (AUTO) 0.6 /CMM (0.1-1.30); MONOCYTES % (AUTO) 9.4 % (2.0-12.0); NEUTROPHILS # (AUTO) 3.8 /CMM (1.8-8.9); NEUTROPHILS % (AUTO) 59.8 % (43.0-81.0); PLATELET COUNT (AUTO) 234 /CMM (150-450); RDW COEFFICIENT OF VARIATION 13.5 (11.5-15.0); RED BLOOD CELL COUNT(AUTO) 5.05 MIL/uL (4.0-5.2); WHITE BLOOD COUNT (AUTO) 6.4 K/uL (4.3-11.0)
[2018-05-13 14:32] LABS: APPEARANCE,URINE Clear (CLEAR); BILIRUBIN,URINE Negative (NEGATIVE); BLOOD, URINE Trace-intact Ery/uL (NEGATIVE); COLOR,URINE Yellow (YELLOW); KETONES,URINE Negative (NEGATIVE); LEUKOCYTE ESTERASE ,URINE Negative (NEGATIVE); NITRITE, URINE Negative (NEGATIVE); PROTEIN,URINE Negative (NEGATIVE); UGLUCOSE Negative (NEGATIVE)
[2018-05-13 14:38] LABS: BACTERIA,URINE Rare /HPF (None Seen); SQUAMOUS EPITHELIAL CELL,UR Few /HPF (None Seen); WBC,URINE 0-2 /HPF (0-3)
[2018-05-13 14:40] LABS: CALCIUM, SERUM 9.5 mg/dL (8.5-10.1); CARBON DIOXIDE 36 mmol/L (21-32); CHLORIDE 101 mmol/L (98-107); CREATININE 0.7 mg/dL (0.6-1.3); GLUCOSE 90 mg/dL (74-106); POTASSIUM 4.1 mmol/L (3.5-5.1); SODIUM SERUM 138 mmol/L (136-145); UREA NITROGEN, BLOOD 11 mg/dL (7-18)
[2018-05-13 14:45] LABS: ALANINE AMINOTRANSFERASE 28 U/L (12-78); ALCOHOL, BLOOD < 3 mg/dL (0-0); ALKALINE PHOSPHATASE 110 U/L (46-116); ASPARTATE AMINOTRANSFERASE 19 U/L (15-37); BILIRUBIN,DIRECT 0.2 mg/dL (0.0-0.2); BILIRUBIN,TOTAL 0.8 mg/dL (0.2-1.0); SALICYLATE 3.7 mg/dL (2.8-20.0); TOTAL PROTEIN, SERUM 7.6 g/dL (6.4-8.2)
[2018-05-13 14:46] LABS: ACETAMINOPHEN 0 ug/ml (10-30)
[2018-05-13] MEDS ORDERED: QUETIAPINE FUMARATE 100 MG TABLET PO SCH (15:00)
--- NOTE | 2018-05-13 15:43 | NUR ---
PT LEFT AFTER THE MEDICALLY CLEARED AND PRINTED REPORT OF LAB RESULT WERE GIVEN AND DIDN'T WAIT FOR MEDICATION. THE SEROQUEL 200MG WASTED AND WITNESSED BY FAITH VALLEJO.
== END 2018-05-13 15:50 | disposition home or self-care (01) ==
LOC: ER 14:10
DX: F29 Unspecified psychosis not due to a substance or known physiological condition (principal); F17.200 Nicotine dependence, unspecified, uncomplicated; F31.9 Bipolar disorder, unspecified; F43.10 Post-traumatic stress disorder, unspecified; F41.9 Anxiety disorder, unspecified; F10.10 Alcohol abuse, uncomplicated; Y90.0 Blood alcohol level of less than 20 mg/100 ml; K21.9 Gastro-esophageal reflux disease without esophagitis; F20.0 Paranoid schizophrenia; Z88.2 Allergy status to sulfonamides; Z88.8 Allergy status to other drugs, medicaments and biological substances; Z60.2 Problems related to living alone
CPT/HCPCS: 36415; 80048-TC; 80076-TC; 80305; 81000-TC; 84703-TC; 85025-TC; A4606; G0480; Z7610

== ENCOUNTER 2018-06-20 10:16 | Emergency (ER) | payer MEDICARE, MEDICAID ==
[~2018-06-20] VITALS: Ht 167.6 cm; Wt 74.8 kg
--- NOTE | 2018-06-20 10:20 | NUR ---
JOSIANE FROM [facility] REQUIRING MEDICAL CLEARANCE PRIOR TO VOLUNTARY ADMISSION FOR SI. PATIENT A/OX 3, BREATHING EVEN AND UNLABORED. NO SOB, NAD, VITALS STABLE. SAFETY AND COMFORT MEASURES IN PLACE. AWAITING MD ORDERS.
--- NOTE | 2018-06-20 10:45 | NUR ---
URINE OBTAINED AND SENT TO LAB.
[2018-06-20] MEDS ORDERED: LORAZEPAM 1 MG TABLET PO ONE (11:00)
[2018-06-20] MEDS ORDERED: LORAZEPAM 1 MG TABLET ONE (11:01)
[2018-06-20 11:15] LABS: BASOPHILS % (AUTO) 0.3 % (0.0-2.0); EOSINOPHILS % (AUTO) 0.9 % (0.0-6.0); HEMATOCRIT 45 % (33-45); HEMOGLOBIN 15.4 g/dL (11.5-14.8); LYMPHOCYTES # (AUTO) 1.2 /CMM (0.8-4.8); LYMPHOCYTES % (AUTO) 14.1 % (20.0-44.0); MEAN CORPUSCULAR HGB CONC 35 g/dl (31.0-36.0); MEAN CORPUSCULAR VOLUME 94 fL (82-100); MONOCYTES # (AUTO) 0.3 /CMM (0.1-1.30); NEUTROPHILS # (AUTO) 6.8 /CMM (1.8-8.9); NEUTROPHILS % (AUTO) 80.7 % (43.0-81.0); PLATELET COUNT (AUTO) 282 /CMM (150-450); RDW COEFFICIENT OF VARIATION 12.8 (11.5-15.0); RED BLOOD CELL COUNT(AUTO) 4.73 MIL/uL (4.0-5.2); WHITE BLOOD COUNT (AUTO) 8.4 K/uL (4.3-11.0)
[2018-06-20 11:17] LABS: APPEARANCE,URINE Clear (CLEAR); BILIRUBIN,URINE MODERATE (NEGATIVE); BLOOD, URINE Negative Ery/uL (NEGATIVE); KETONES,URINE 40 (NEGATIVE); LEUKOCYTE ESTERASE ,URINE Negative (NEGATIVE); NITRITE, URINE Negative (NEGATIVE); PROTEIN,URINE 30 mg/dl (NEGATIVE); UGLUCOSE Negative (NEGATIVE)
[2018-06-20 11:18] LABS: COLOR,URINE Dark Yellow (YELLOW)
[2018-06-20 11:21] LABS: BACTERIA,URINE Few /HPF (None Seen); MUCUS,URINE MANY /LPF (None Seen); RBC,URINE 0-2 /HPF (0-2); SQUAMOUS EPITHELIAL CELL,UR Moderate /HPF (None Seen); WBC,URINE 0-2 /HPF (0-3)
[2018-06-20 11:24] LABS: CARBON DIOXIDE 31 mmol/L (21-32); CHLORIDE 98 mmol/L (98-107); CREATININE 0.6 mg/dL (0.6-1.3); GLUCOSE 96 mg/dL (74-106); SODIUM SERUM 133 mmol/L (136-145); UREA NITROGEN, BLOOD 10 mg/dL (7-18)
[2018-06-20 11:30] LABS: ALANINE AMINOTRANSFERASE 39 U/L (12-78); ALBUMIN 4.1 g/dL (3.4-5.0); ALKALINE PHOSPHATASE 134 U/L (46-116); ASPARTATE AMINOTRANSFERASE 25 U/L (15-37); BILIRUBIN,DIRECT 0.3 mg/dL (0.0-0.2); SALICYLATE 4.1 mg/dL (2.8-20.0); TOTAL PROTEIN, SERUM 7.7 g/dL (6.4-8.2)
[2018-06-20 11:31] LABS: ACETAMINOPHEN 0 ug/ml (10-30); ALCOHOL, BLOOD < 3 mg/dL (0-0)
--- NOTE | 2018-06-20 12:43 | NUR ---
SPOKE WITH JEFF AT [facility] TO SET UP BLS TRANSPORT TO [facility]; ETA 15 MINUTES TRIP#[id number]
[2018-06-20 13:09] VITALS: BP 136/82
--- NOTE | 2018-06-20 13:12 | NUR ---
PATIENT TRANSFERRED TO [facility] VIA AMBULANCE.
== END 2018-06-20 13:11 ==
LOC: ER 10:18
DX: F28 Other psychotic disorder not due to a substance or known physiological condition (principal); K21.9 Gastro-esophageal reflux disease without esophagitis; F32.9 Major depressive disorder, single episode, unspecified; F43.10 Post-traumatic stress disorder, unspecified; F41.9 Anxiety disorder, unspecified; F17.200 Nicotine dependence, unspecified, uncomplicated; F20.0 Paranoid schizophrenia; Z88.8 Allergy status to other drugs, medicaments and biological substances; Z88.2 Allergy status to sulfonamides; Z60.2 Problems related to living alone; Z79.899 Other long term (current) drug therapy
CPT/HCPCS: 36415; 80048; 80076; 80305; 80329; 81001; 85025; 99285; A4606; G0480 ×2; 81000-TC; Z7610

== ENCOUNTER 2019-03-25 18:36 | Emergency (ER) | payer MEDICARE, MEDICAID ==
--- NOTE | 2019-03-25 18:50 | NUR ---
PT REFUSED TO BE WANDED AND PUT ON A GOWN, AGITTATED ACCUSING HOSPITAL OF STEALING HER MONEY. DR RASHEED TRIED TO TALK TO PATIENT AT TRIAGE ROOM. STATES DEPRESSED AND NEED TO GO TO [facility] AND DENIES TO BE SUICIDAL.
--- NOTE | 2019-03-25 18:55 | NUR ---
PT LEFT ED WITHOUT BEING TRIAGE.
== END 2019-03-25 18:56 | disposition left against medical advice (07) ==
LOC: ER 18:36
DX: F32.9 Major depressive disorder, single episode, unspecified (principal); R45.1 Restlessness and agitation; K21.9 Gastro-esophageal reflux disease without esophagitis; F41.9 Anxiety disorder, unspecified; F43.10 Post-traumatic stress disorder, unspecified; F20.0 Paranoid schizophrenia; Z91.14 Patient's other noncompliance with medication regimen; Z88.8 Allergy status to other drugs, medicaments and biological substances; Z88.2 Allergy status to sulfonamides; Z60.2 Problems related to living alone; Z79.899 Other long term (current) drug therapy

== ENCOUNTER 2019-04-10 13:14 | Emergency (ER) | payer MEDICARE, MEDICAID ==
[~2019-04-10] VITALS: Ht 162.6 cm; Wt 70.8 kg
[2019-04-10] MEDS ORDERED: OLANZAPINE 5 MG TABLET PO ONE (13:30)
[2019-04-10] MEDS ORDERED: LORAZEPAM 1 MG TABLET PO ONE (13:30)
--- NOTE | 2019-04-10 13:30 | NUR ---
48 YEAR OLD FEMALE Medical clearance for yuliana Johnson. c/o suicidal ideation w/ no plan States "I need a blood and urine test". EXPLANIED TO PATIENT URINE SAMPLE WAS NEEDED, PATIENT WAS BEING AGGRESSIVE AND NON-COMPLIANT. SHE WANTED TO KEEP HER PURSE AND WOULD NOT REMOVE HER PURSE TO VERIFY ANY CONTRABAND, PATIENT WAS BEING AGRESSIVE. SECURITY WAS CALLED, PATIENT WAS STILL BEING NON COMPLIANT AND PATIENT WALKED AWAY WITH BELONGINGS.
[2019-04-10 13:39] VITALS: BP 110/65
== END 2019-04-10 13:35 | disposition left against medical advice (07) ==
LOC: ER 13:14
DX: R45.1 Restlessness and agitation (principal); K21.9 Gastro-esophageal reflux disease without esophagitis; F32.9 Major depressive disorder, single episode, unspecified; F41.9 Anxiety disorder, unspecified; F43.10 Post-traumatic stress disorder, unspecified; F20.0 Paranoid schizophrenia; Z88.2 Allergy status to sulfonamides; Z88.8 Allergy status to other drugs, medicaments and biological substances; Z60.2 Problems related to living alone; Z79.899 Other long term (current) drug therapy

== ENCOUNTER 2019-06-01 19:23 | Emergency (ER) | payer MEDICARE, MEDICAID ==
[~2019-06-01] VITALS: Ht 167.6 cm; Wt 81.6 kg
[2019-06-01] MEDS ORDERED: ONDANSETRON 4 MG TAB.RAPDIS SL ONE (20:30)
[2019-06-01] MEDS ORDERED: ACETAMINOPHEN 325 MG TABLET PO ONE (20:30)
[2019-06-01 20:34] LABS: APPEARANCE,URINE Clear (CLEAR); BILIRUBIN,URINE Negative (NEGATIVE); BLOOD, URINE Trace-intact Ery/uL (NEGATIVE); COLOR,URINE Yellow (YELLOW); KETONES,URINE Negative (NEGATIVE); LEUKOCYTE ESTERASE ,URINE Negative (NEGATIVE); NITRITE, URINE Negative (NEGATIVE); PROTEIN,URINE Negative (NEGATIVE); UGLUCOSE Negative (NEGATIVE); UROBILINOGEN,URINE 0.2 EU/dL (0.2)
[2019-06-01] MEDS ORDERED: ACETAMINOPHEN 325 MG TABLET ONE (20:41)
[2019-06-01] MEDS ORDERED: ONDANSETRON 4 MG TAB.RAPDIS ONE (20:41)
[2019-06-01 20:45] LABS: BACTERIA,URINE Rare /HPF (None Seen); SQUAMOUS EPITHELIAL CELL,UR Few /HPF (None Seen); WBC,URINE NONE SEEN /HPF (0-3)
[2019-06-01 20:46] LABS: BASOPHILS % (AUTO) 0.6 % (0.0-2.0); EOSINOPHILS % (AUTO) 1.5 % (0.0-6.0); HEMATOCRIT 37 % (33-45); HEMOGLOBIN 12.4 g/dL (11.5-14.8); LYMPHOCYTES # (AUTO) 2.5 /CMM (0.8-4.8); LYMPHOCYTES % (AUTO) 33.5 % (20.0-44.0); MEAN CORPUSCULAR HGB CONC 34 g/dl (31.0-36.0); MEAN CORPUSCULAR VOLUME 89 fL (82-100); MONOCYTES # (AUTO) 0.8 /CMM (0.1-1.30); MONOCYTES % (AUTO) 10.5 % (2.0-12.0); NEUTROPHILS % (AUTO) 53.9 % (43.0-81.0); PLATELET COUNT (AUTO) 199 /CMM (150-450); RED BLOOD CELL COUNT(AUTO) 4.13 MIL/uL (4.0-5.2); WHITE BLOOD COUNT (AUTO) 7.3 K/uL (4.3-11.0)
--- NOTE | 2019-06-01 20:46 | NUR ---
MID ABD PAIN, N/V X 1WK, DIARRHEA, DENIES ANY BLOOD IN STOOLS VAGINAL DISCHARGE, HX BACTERIAL VAGINITIS FOR SEVERAL YRS. PT AAOX3, VSS, RR EVEN & UNLABORED. DENIES CP, SOB, DIZZINESS @ THIS TIME. SEEN & EVAL'D BY NILA JAMIL & WILL CONT TO MONITOR.
[2019-06-01 20:53] LABS: CALCIUM, SERUM 8.6 mg/dL (8.5-10.1); CARBON DIOXIDE 30 mmol/L (21-32); CHLORIDE 102 mmol/L (98-107); CREATININE 0.6 mg/dL (0.6-1.3); GLUCOSE 96 mg/dL (74-106); SODIUM SERUM 139 mmol/L (136-145); UREA NITROGEN, BLOOD 12 mg/dL (7-18)
[2019-06-01 20:59] LABS: ALANINE AMINOTRANSFERASE 15 U/L (12-78); ALBUMIN 3.4 g/dL (3.4-5.0); ALCOHOL, BLOOD 4 mg/dL (0-0); ALKALINE PHOSPHATASE 93 U/L (46-116); ASPARTATE AMINOTRANSFERASE 11 U/L (15-37); BILIRUBIN,DIRECT 0.1 mg/dL (0.0-0.2); BILIRUBIN,TOTAL 0.2 mg/dL (0.2-1.0); TOTAL PROTEIN, SERUM 6.8 g/dL (6.4-8.2)
[2019-06-01 21:00] LABS: ACETAMINOPHEN < 2 ug/ml (10-30)
--- NOTE | 2019-06-01 23:27 | NUR ---
Patient is resting comfortably in bed with eyes closed. Easily aroused. VSS
--- NOTE | 2019-06-02 00:09 | NUR ---
PT ACCEPTED TO [facility] BY DR PRITCHETT, # FOR REPORT [phone]
--- NOTE | 2019-06-02 00:17 | NUR ---
PT IS UPSET WITH BEING ACCEPTED TO [facility]. PT YELLING AT STAFF THAT SHE DOES NOT WANT TO GO THERE. PATIENT WANTING TO LEAVE ER. OMERO DOTSON NOTIFIED.
--- NOTE | 2019-06-02 00:22 | NUR ---
PT REQUESTING TO BE DISCHARGED FROM ER. PT OK TO BE DISCHARGED PER OMERO DOTSON. PT REFUSING TO SIGN AFTER CARE INSTRUCTIONS AND HOMELESS WAIVER.
[2019-06-02 00:23] VITALS: BP 124/90
== END 2019-06-02 00:24 | disposition home or self-care (01) ==
LOC: ER 19:23
DX: R45.851 Suicidal ideations (principal); F15.10 Other stimulant abuse, uncomplicated; K21.9 Gastro-esophageal reflux disease without esophagitis; F17.200 Nicotine dependence, unspecified, uncomplicated; Z59.0 Homelessness; Z98.890 Other specified postprocedural states; Z88.8 Allergy status to other drugs, medicaments and biological substances; Z88.2 Allergy status to sulfonamides; Z79.899 Other long term (current) drug therapy
CPT/HCPCS: 80048; 80076; 80305; 80307; 80329; 81001; 84703; 85025; 87070; 87210; 87491; 87591; 99284; G0480; Q0162; 81000-TC

== ENCOUNTER 2019-08-16 16:54 | Emergency (ER) | payer MEDICARE, OTHER ==
[~2019-08-16] VITALS: Ht 170.2 cm; Wt 82.1 kg
[2019-08-16 17:12] VITALS: BP 123/86
--- NOTE | 2019-08-16 17:20 | NUR ---
SEEN AND EXAMINED BY GISELE NOLAN
--- NOTE | 2019-08-16 17:45 | NUR ---
URINE SPECIMEN COLLECTED AND SENT TO LAB
--- NOTE | 2019-08-16 17:52 | NUR ---
FOOD TRAY PROVIDED
[2019-08-16 18:15] LABS: APPEARANCE,URINE Clear (CLEAR); BILIRUBIN,URINE Negative (NEGATIVE); BLOOD, URINE Trace-intact Ery/uL (NEGATIVE); COLOR,URINE Yellow (YELLOW); KETONES,URINE Negative (NEGATIVE); LEUKOCYTE ESTERASE ,URINE Small (NEGATIVE); NITRITE, URINE Negative (NEGATIVE); PROTEIN,URINE Negative (NEGATIVE); UGLUCOSE Negative (NEGATIVE); UROBILINOGEN,URINE 0.2 EU/dL (0.2)
[2019-08-16 18:29] LABS: BACTERIA,URINE Few /HPF (None Seen); RBC,URINE 2-3/HPF /HPF (0-2)
[2019-08-16 18:30] LABS: SQUAMOUS EPITHELIAL CELL,UR Moderate /HPF (None Seen); URINE AMORPHOUS URATE Few /HPF (None Seen)
[2019-08-16] MEDS ORDERED: CEPHALEXIN MONOHYDRATE 500 MG CAPSULE PO ONE ×2 (18:38→19:00)
[2019-08-16] MEDS ORDERED: FLUCONAZOLE (100 MG) 100 MG TABLET ONE ×2 (18:39→18:46)
--- NOTE | 2019-08-16 18:47 | NUR ---
Patient given written and verbal discharge instructions. Patient verbalizes understanding of instructions. Patient is ambulatory with steady gait. Refuses offer of [facility] placement. Patient given list of available shelters in surrounding area.
[2019-08-16] MEDS ORDERED: FLUCONAZOLE (100 MG) 100 MG TABLET PO ONE (19:00)
== END 2019-08-16 18:50 | disposition home or self-care (01) ==
LOC: ER 16:55
DX: N39.0 Urinary tract infection, site not specified (principal); K21.9 Gastro-esophageal reflux disease without esophagitis; F32.9 Major depressive disorder, single episode, unspecified; F41.9 Anxiety disorder, unspecified; F43.10 Post-traumatic stress disorder, unspecified; F17.200 Nicotine dependence, unspecified, uncomplicated; F20.0 Paranoid schizophrenia; Z98.890 Other specified postprocedural states; Z88.8 Allergy status to other drugs, medicaments and biological substances; Z88.2 Allergy status to sulfonamides; Z59.0 Homelessness; Z79.899 Other long term (current) drug therapy
CPT/HCPCS: 81000-TC; 84703-TC; 87086-TC; 87186-TC

== ENCOUNTER 2019-09-06 17:23 | Emergency (ER) | payer MEDICARE, MEDICAID ==
[~2019-09-06] VITALS: Ht 167.6 cm; Wt 78.9 kg
[~2019-09-06 17:23] MED LIST changes: -TRAZ-214 PO; +TRAZ-257 PO
--- NOTE | 2019-09-06 17:40 | NUR ---
VAGINAL ITCHING AND PELVIC PAIN X "COUPLE OF DAYS." ON ROOM AIR, BREATHING EVENLY AND UNLABORED. KEPT COMFORTABLE, WILL CONTINUE TO MONITOR ACCORDINGLY,
[2019-09-06 17:50] VITALS: BP 127/69
[2019-09-06 18:45] LABS: APPEARANCE,URINE CLEAR (CLEAR); BILIRUBIN,URINE SMALL (NEGATIVE); BLOOD, URINE NEGATIVE Ery/uL (NEGATIVE); COLOR,URINE YELLOW (YELLOW); KETONES,URINE NEGATIVE (NEGATIVE); LEUKOCYTE ESTERASE ,URINE NEGATIVE (NEGATIVE); NITRITE, URINE NEGATIVE (NEGATIVE); PROTEIN,URINE NEGATIVE (NEGATIVE); UGLUCOSE NEGATIVE (NEGATIVE)
[2019-09-06 18:55] LABS: BACTERIA,URINE None seen /HPF (None Seen); RBC,URINE 0-2 /HPF (0-2); SQUAMOUS EPITHELIAL CELL,UR Few /HPF (None Seen); WBC,URINE 0-2 /HPF (0-3)
--- NOTE | 2019-09-06 19:21 | NUR ---
Patient eloped from facility. ER MD notified.
== END 2019-09-06 19:21 | disposition left against medical advice (07) ==
LOC: ER 17:24
DX: L29.8 Other pruritus (principal); R10.2 Pelvic and perineal pain; K21.9 Gastro-esophageal reflux disease without esophagitis; F32.9 Major depressive disorder, single episode, unspecified; F43.10 Post-traumatic stress disorder, unspecified; F41.9 Anxiety disorder, unspecified; F20.0 Paranoid schizophrenia; F17.200 Nicotine dependence, unspecified, uncomplicated; Z98.890 Other specified postprocedural states; Z88.8 Allergy status to other drugs, medicaments and biological substances; Z88.2 Allergy status to sulfonamides; Z59.0 Homelessness; Z79.899 Other long term (current) drug therapy
CPT/HCPCS: 81000-TC; 84703-TC; 87491; 87591

== ENCOUNTER 2019-10-01 07:49 | Emergency (ER) | payer MEDICARE, OTHER ==
[~2019-10-01] VITALS: Ht 167.6 cm; Wt 72.6 kg
[2019-10-01 08:08] VITALS: BP 125/80
[2019-10-01] MEDS ORDERED: QUETIAPINE FUMARATE 25 MG TABLET PO STA (08:17)
[2019-10-01] MEDS ORDERED: QUETIAPINE FUMARATE 25 MG TABLET ONE (08:42)
--- NOTE | 2019-10-01 08:44 | NUR ---
PT RECD' TO ER C/O BURNING WHEN URINATING MEDS GIVEN PER MD POS GIVEN PENDING UAAWAITING EVALUATION BY ER PROVIDER.
[2019-10-01 08:59] LABS: BILIRUBIN,URINE Negative (NEGATIVE); BLOOD, URINE Negative Ery/uL (NEGATIVE); COLOR,URINE Yellow (YELLOW); KETONES,URINE Negative (NEGATIVE); LEUKOCYTE ESTERASE ,URINE Negative (NEGATIVE); NITRITE, URINE Negative (NEGATIVE); PH,URINE 8.5 (5.0-8.0); PROTEIN,URINE Negative (NEGATIVE); UGLUCOSE Negative (NEGATIVE)
--- NOTE | 2019-10-01 08:59 | NUR ---
PT GIVEN UA SENT TO LAB
[2019-10-01 09:02] LABS: APPEARANCE,URINE CLEAR (CLEAR)
== END 2019-10-01 09:35 | disposition home or self-care (01) ==
LOC: ER 07:51
DX: R30.0 Dysuria (principal); K21.9 Gastro-esophageal reflux disease without esophagitis; F10.10 Alcohol abuse, uncomplicated; F17.200 Nicotine dependence, unspecified, uncomplicated; Y90.9 Presence of alcohol in blood, level not specified; Z98.890 Other specified postprocedural states; Z88.2 Allergy status to sulfonamides; Z79.899 Other long term (current) drug therapy; Z88.8 Allergy status to other drugs, medicaments and biological substances; Z59.0 Homelessness
CPT/HCPCS: 81000-TC; 87086-TC

== ENCOUNTER 2019-10-05 10:38 | Emergency (ER) | payer MEDICARE, OTHER ==
[~2019-10-05] VITALS: Ht 170.2 cm; Wt 74.8 kg
--- NOTE | 2019-10-05 11:05 | NUR ---
STS "IM SUICIDAL" + PLAN, "BANG MY HEAD IN THE WINDOW." PATIENT A/OX4, BREATHING EVEN AND UNLABORED, NO SOB NOTED. NEEDS ATTENDED. WILL CONTINUE TO MONITOR. SECURITY CALLED FOR WANDERING. Addendum: 10/05/19 at 1136 by ROALCANCES CORRECTION: TARA
[2019-10-05 11:25] LABS: BASOPHILS % (AUTO) 0.6 % (0.0-2.0); EOSINOPHILS % (AUTO) 1.5 % (0.0-6.0); HEMATOCRIT 39 % (33-45); HEMOGLOBIN 13.1 g/dL (11.5-14.8); LYMPHOCYTES # (AUTO) 1.8 /CMM (0.8-4.8); LYMPHOCYTES % (AUTO) 29.3 % (20.0-44.0); MEAN CORPUSCULAR HGB CONC 33 g/dl (31.0-36.0); MEAN CORPUSCULAR VOLUME 87 fL (82-100); MONOCYTES # (AUTO) 0.6 /CMM (0.1-1.30); MONOCYTES % (AUTO) 10.1 % (2.0-12.0); NEUTROPHILS # (AUTO) 3.5 /CMM (1.8-8.9); NEUTROPHILS % (AUTO) 58.5 % (43.0-81.0); PLATELET COUNT (AUTO) 247 /CMM (150-450); WHITE BLOOD COUNT (AUTO) 6.1 K/uL (4.3-11.0)
[2019-10-05 11:32] LABS: CALCIUM, SERUM 9.1 mg/dL (8.5-10.1); CREATININE 0.5 mg/dL (0.6-1.3); POTASSIUM 3.3 mmol/L (3.5-5.1)
[2019-10-05 11:39] LABS: ALBUMIN 3.3 g/dL (3.4-5.0); BILIRUBIN,DIRECT 0.1 mg/dL (0.0-0.2); BILIRUBIN,TOTAL 0.3 mg/dL (0.2-1.0); SALICYLATE 2.8 mg/dL (2.8-20.0); TOTAL PROTEIN, SERUM 6.8 g/dL (6.4-8.2)
[2019-10-05 11:57] LABS: APPEARANCE,URINE Clear (CLEAR); BILIRUBIN,URINE Negative (NEGATIVE); BLOOD, URINE Negative Ery/uL (NEGATIVE); COLOR,URINE Yellow (YELLOW); KETONES,URINE Negative (NEGATIVE); LEUKOCYTE ESTERASE ,URINE Negative (NEGATIVE); NITRITE, URINE Negative (NEGATIVE); PROTEIN,URINE Negative (NEGATIVE); UGLUCOSE Negative (NEGATIVE); UROBILINOGEN,URINE 0.2 EU/dL (0.2)
--- NOTE | 2019-10-05 12:55 | NUR ---
PATIENT SCREAMING AT THE NURSES STATION, INSISTING ON LEAVING. STAFF EXPLAINING TO PATIENT RE: REFERRAL AND TREATMENT. PATIENT DENIES BEING SUICIDAL AT THIS TIME. AMBULATORY. OFFERED FOOD BUT PATIENT REFUSED, PATIENT HAS HER OWN FOOD AT HAND.
--- NOTE | 2019-10-05 13:01 | NUR ---
PATIENT LEFT WITHOUT DISCHARGE INSTRUCTIONS. PATIENT REFUSES TO STAY AND WAIT FOR REFERRAL TO A PSYCH FACILITY AND FOR A TOBACCO CURER. DR. MALDONADO MADE AWARE. PER PATIENT SHE WILL GO STRAIGHT TO [facility]. EXPLAINED RISKS OF LEAVING PATIENT VERBALIZED UNDERSTANDING. SECURITY PRESENT, DR. MALDONADO MADE AWARE. Patient is ambulatory with steady gait, belongings given. Refuses offer of [place] [facility] [place]. Patient given list of available shelters in surrounding area. Patient refused to sign homeless waiver.
[2019-10-05 13:11] VITALS: BP 124/68
== END 2019-10-05 13:11 | disposition home or self-care (01) ==
LOC: ER 10:42
DX: F31.9 Bipolar disorder, unspecified (principal); F41.9 Anxiety disorder, unspecified; F20.0 Paranoid schizophrenia; F43.10 Post-traumatic stress disorder, unspecified; K21.9 Gastro-esophageal reflux disease without esophagitis; F10.10 Alcohol abuse, uncomplicated; F17.200 Nicotine dependence, unspecified, uncomplicated; Y90.0 Blood alcohol level of less than 20 mg/100 ml; Z98.890 Other specified postprocedural states; Z59.0 Homelessness; Z79.899 Other long term (current) drug therapy; Z88.2 Allergy status to sulfonamides; Z88.8 Allergy status to other drugs, medicaments and biological substances
CPT/HCPCS: 36415; 80048; 80076; 80305; 80307; 80329; 81001; 84703; 85025; 99284; G0480; 81000-TC

== ENCOUNTER 2019-10-20 20:08 | Emergency (ER) | payer MEDICARE, OTHER ==
[~2019-10-20] VITALS: Ht 167.6 cm; Wt 72.1 kg
--- NOTE | 2019-10-20 20:15 | NUR ---
CALLED FOR TRIAGE, NO ANSWER.
--- NOTE | 2019-10-20 20:19 | NUR ---
CALLED FOR TRIAGE, NO ANSWER.
--- NOTE | 2019-10-20 20:23 | NUR ---
CALLED FOR TRIAGE, NO ANSWER.
--- NOTE | 2019-10-20 21:01 | NUR ---
CALLED FOR TRIAGE, NO ANSWER.
--- NOTE | 2019-10-20 21:37 | NUR ---
PT BROUGHT INTO EMERGENCY ROOM FOR SUICIDAL THOUGHTS WITH A PLAN TO HIT HEAD AGSAINST A CAR OR CAUSE HARM TO IRRIGATION SYSTEM INSTALLER. WILL MONITOR PT.
[2019-10-20 21:44] LABS: BASOPHILS % (AUTO) 0.5 % (0.0-2.0); EOSINOPHILS % (AUTO) 1.5 % (0.0-6.0); HEMATOCRIT 43 % (33-45); LYMPHOCYTES # (AUTO) 1.8 /CMM (0.8-4.8); MEAN CORPUSCULAR HGB CONC 33 g/dl (31.0-36.0); MEAN CORPUSCULAR VOLUME 89 fL (82-100); MONOCYTES # (AUTO) 0.5 /CMM (0.1-1.30); MONOCYTES % (AUTO) 9.6 % (2.0-12.0); NEUTROPHILS % (AUTO) 54.4 % (43.0-81.0); PLATELET COUNT (AUTO) 195 /CMM (150-450); WHITE BLOOD COUNT (AUTO) 5.4 K/uL (4.3-11.0)
[2019-10-20 21:54] LABS: CALCIUM, SERUM 9.1 mg/dL (8.5-10.1); CARBON DIOXIDE 30 mmol/L (21-32); CHLORIDE 104 mmol/L (98-107); CREATININE 0.6 mg/dL (0.6-1.3); GLUCOSE 89 mg/dL (74-106); SODIUM SERUM 141 mmol/L (136-145); UREA NITROGEN, BLOOD 15 mg/dL (7-18)
--- NOTE | 2019-10-20 21:54 | NUR ---
PT UNABLE TO GIVE URINE PT UNABLE TO FOCUS AND CONCENTRATE PT LOOKS DISCHEIVELED AND HAS CLOTHES IN BAG . AWARE
[2019-10-20 21:58] LABS: ALANINE AMINOTRANSFERASE 15 U/L (12-78); ALBUMIN 3.5 g/dL (3.4-5.0); ALCOHOL, BLOOD < 3 mg/dL (0-0); ALKALINE PHOSPHATASE 98 U/L (46-116); ASPARTATE AMINOTRANSFERASE 14 U/L (15-37); BILIRUBIN,DIRECT 0.1 mg/dL (0.0-0.2); BILIRUBIN,TOTAL 0.3 mg/dL (0.2-1.0); SALICYLATE 3.6 mg/dL (2.8-20.0); TOTAL PROTEIN, SERUM 7.1 g/dL (6.4-8.2)
[2019-10-20 22:01] LABS: ACETAMINOPHEN 0 ug/ml (10-30)
--- NOTE | 2019-10-20 22:32 | NUR ---
URINE SAMPLE OBTAINED AND SENT TO LAB FOR PROCESSING
[2019-10-20 22:36] LABS: APPEARANCE,URINE Clear (CLEAR); BILIRUBIN,URINE Negative (NEGATIVE); BLOOD, URINE Negative Ery/uL (NEGATIVE); COLOR,URINE Yellow (YELLOW); KETONES,URINE Trace (NEGATIVE); LEUKOCYTE ESTERASE ,URINE Negative (NEGATIVE); NITRITE, URINE Negative (NEGATIVE); PH,URINE 5.5 (5.0-8.0); PROTEIN,URINE Negative (NEGATIVE); UGLUCOSE Negative (NEGATIVE); UROBILINOGEN,URINE 0.2 EU/dL (0.2)
[2019-10-20 22:50] LABS: BACTERIA,URINE Few /HPF (None Seen); RBC,URINE 0-2 /HPF (0-2); SQUAMOUS EPITHELIAL CELL,UR Few /HPF (None Seen); WBC,URINE 0-2 /HPF (0-3)
[2019-10-21 02:00] VITALS: BP 135/75
--- NOTE | 2019-10-21 03:07 | NUR ---
PT ACCEPTED TO [facility] BY DR DIETRICH. UNIT 2 BED 222-B. # FOR REPORT [phone]
--- NOTE | 2019-10-21 03:13 | NUR ---
[facility] CALLED FOR TRANSPORT. ETA 90 MINUTES TRIP# [id number]
--- NOTE | 2019-10-21 03:24 | NUR ---
pt verbalized that she is no longer s/i, no h/i, pt wants to leave, pt is for voluntary admission to [facility], pt does not want to stay any longer, md aware, all belongings given to patient, wristband removed. pt eloped from emergency room. pt appears clincally sober, pt in stable condtion, vss.
== END 2019-10-21 03:24 | disposition left against medical advice (07) ==
LOC: ER 20:09
DX: R45.851 Suicidal ideations (principal); K21.9 Gastro-esophageal reflux disease without esophagitis; F32.9 Major depressive disorder, single episode, unspecified; F43.10 Post-traumatic stress disorder, unspecified; F41.9 Anxiety disorder, unspecified; F17.200 Nicotine dependence, unspecified, uncomplicated; Z98.890 Other specified postprocedural states; Z88.2 Allergy status to sulfonamides; Z88.8 Allergy status to other drugs, medicaments and biological substances; Z59.0 Homelessness; Z79.899 Other long term (current) drug therapy
CPT/HCPCS: 36415; 80048; 80076; 80305; 80307; 80329; 81001; 84703; 85025; 99284; G0480; 81000-TC

== ENCOUNTER 2019-11-02 07:44 | Emergency (ER) | payer MEDICARE, OTHER ==
[~2019-11-02] VITALS: Ht 167.6 cm; Wt 73.9 kg
--- NOTE | 2019-11-02 08:19 | NUR ---
PT LEFT WITHOUT BEING SEEN BY ED PROVIDER.
[2019-11-02 08:21] VITALS: BP 147/88
== END 2019-11-02 08:25 | disposition left against medical advice (07) ==
LOC: ER 07:49
DX: R45.851 Suicidal ideations (principal); Z53.21 Procedure and treatment not carried out due to patient leaving prior to being seen by health care provider; Z59.0 Homelessness

== ENCOUNTER 2019-11-04 01:51 | Emergency (ER) | payer MEDICARE, MEDICAID ==
[~2019-11-04] VITALS: Ht 172.7 cm; Wt 59.0 kg
--- NOTE | 2019-11-04 01:51 | NUR ---
Pt to er bb ra and [employer] from [facility] for bizarre behavior. Upon arrival patient screaming and aggressive towards staff. Hematoma to forhead, per ems patient was banging head against wall. Pt to er bed 6, changed into gown and connected to monitor. Dr Pena at bedside for exam. Will cont to monitor pt.
[2019-11-04] MEDS ORDERED: HALOPERIDOL LACTATE INJ 5 MG/ML VIAL ONE (02:10)
[2019-11-04] MEDS ORDERED: diphenhydrAMINE HCL 50 MG/ML VIAL ONE (02:10)
[2019-11-04] MEDS ORDERED: LORAZEPAM INJ 2 MG/ML VIAL ONE (02:10)
[2019-11-04] MEDS ORDERED: LORAZEPAM INJ 2 MG/ML VIAL IM/IV ONE (02:30)
[2019-11-04] MEDS ORDERED: HALOPERIDOL LACTATE INJ 5 MG/ML VIAL IM ONE (02:30)
[2019-11-04] MEDS ORDERED: diphenhydrAMINE HCL 50 MG/ML VIAL IM ONE (02:30)
--- NOTE | 2019-11-04 02:49 | NUR ---
BLOOD DRAWN AND SENT TO LAB.
[2019-11-04 03:03] LABS: BASOPHILS % (AUTO) 0.3 % (0.0-2.0); EOSINOPHILS % (AUTO) 0.8 % (0.0-6.0); HEMATOCRIT 43 % (33-45); HEMOGLOBIN 14.3 g/dL (11.5-14.8); LYMPHOCYTES # (AUTO) 0.8 /CMM (0.8-4.8); LYMPHOCYTES % (AUTO) 10.4 % (20.0-44.0); MEAN CORPUSCULAR HGB CONC 33 g/dl (31.0-36.0); MEAN CORPUSCULAR VOLUME 89 fL (82-100); MONOCYTES # (AUTO) 0.4 /CMM (0.1-1.30); MONOCYTES % (AUTO) 5.1 % (2.0-12.0); NEUTROPHILS # (AUTO) 6.7 /CMM (1.8-8.9); NEUTROPHILS % (AUTO) 83.4 % (43.0-81.0); PLATELET COUNT (AUTO) 177 /CMM (150-450); RED BLOOD CELL COUNT(AUTO) 4.84 MIL/uL (4.0-5.2); WHITE BLOOD COUNT (AUTO) 8.1 K/uL (4.3-11.0)
[2019-11-04 03:11] LABS: CALCIUM, SERUM 9.2 mg/dL (8.5-10.1); CARBON DIOXIDE 30 mmol/L (21-32); CHLORIDE 103 mmol/L (98-107); CREATININE 0.7 mg/dL (0.6-1.3); GLUCOSE 116 mg/dL (74-106); POTASSIUM 3.6 mmol/L (3.5-5.1); SODIUM SERUM 142 mmol/L (136-145); UREA NITROGEN, BLOOD 21 mg/dL (7-18)
--- NOTE | 2019-11-04 03:15 | NUR ---
PT'S RESTRAINT DISCONTINUED. MEDICATION IN EFFEECT. PT IS COOPERATIVE AND COMPLIANT.
[2019-11-04 03:16] LABS: ALANINE AMINOTRANSFERASE 22 U/L (12-78); ALCOHOL, BLOOD < 3 mg/dL (0-0); ALKALINE PHOSPHATASE 109 U/L (46-116); ASPARTATE AMINOTRANSFERASE 22 U/L (15-37); BILIRUBIN,DIRECT 0.1 mg/dL (0.0-0.2); BILIRUBIN,TOTAL 0.6 mg/dL (0.2-1.0); SALICYLATE 3.2 mg/dL (2.8-20.0); TOTAL PROTEIN, SERUM 7.7 g/dL (6.4-8.2)
[2019-11-04 03:19] LABS: ACETAMINOPHEN 0 ug/ml (10-30)
[2019-11-04] MEDS ORDERED: LORAZEPAM INJ 2 MG/ML VIAL IM ONE (04:00)
--- NOTE | 2019-11-04 04:05 | NUR ---
Pt sleeping in gurcontinental divide. No signs of distress noted. pt vital sgns within normal limits. will cont to monitor pt.
[2019-11-04 04:38] LABS: APPEARANCE,URINE Cloudy (CLEAR); BILIRUBIN,URINE SMALL (NEGATIVE); BLOOD, URINE Negative Ery/uL (NEGATIVE); COLOR,URINE Dark (YELLOW); KETONES,URINE Trace (NEGATIVE); LEUKOCYTE ESTERASE ,URINE Trace (NEGATIVE); NITRITE, URINE Negative (NEGATIVE); PROTEIN,URINE 30 mg/dl (NEGATIVE); UGLUCOSE Negative (NEGATIVE)
[2019-11-04 04:52] LABS: BACTERIA,URINE Many /HPF (None Seen); RBC,URINE 0-2 /HPF (0-2); WBC,URINE 0-2 /HPF (0-3)
[2019-11-04 04:53] LABS: MUCUS,URINE Few /LPF (None Seen); SQUAMOUS EPITHELIAL CELL,UR Few /HPF (None Seen); URINE AMORPHOUS URATE Many /HPF (None Seen)
[2019-11-04 10:52] VITALS: BP 129/77
--- NOTE | 2019-11-04 10:52 | NUR ---
Patient given written and verbal discharge instructions. Patient verbalizes understanding of instructions. Patient is ambulatory with steady gait. Refuses offer of [facility] placement. Patient given list of available shelters in surrounding area.
== END 2019-11-04 10:54 | disposition home or self-care (01) ==
LOC: ER 01:52
DX: S00.83XA Contusion of other part of head, initial encounter (principal); F28 Other psychotic disorder not due to a substance or known physiological condition; R45.1 Restlessness and agitation; K21.9 Gastro-esophageal reflux disease without esophagitis; F32.9 Major depressive disorder, single episode, unspecified; F43.10 Post-traumatic stress disorder, unspecified; F41.9 Anxiety disorder, unspecified; F20.0 Paranoid schizophrenia; Z98.890 Other specified postprocedural states; Z88.8 Allergy status to other drugs, medicaments and biological substances; Z88.2 Allergy status to sulfonamides; Z79.899 Other long term (current) drug therapy; X58.XXXA Exposure to other specified factors, initial encounter; Y93.89 Activity, other specified; Y92.89 Other specified places as the place of occurrence of the external cause; Y99.8 Other external cause status
CPT/HCPCS: 36415; 70450; 72125; 80048; 80076; 80305; 80307; 80329; 81001; 85025; 87086; 96372 ×2; 99284; G0480; J1200; J1630; J2060; 81000-TC

== ENCOUNTER 2019-11-20 13:39 | Emergency (ER) | payer MEDICARE, OTHER ==
--- NOTE | 2019-11-20 13:55 | NUR ---
called for triage not in the waiting room
--- NOTE | 2019-11-20 14:03 | NUR ---
called for triage not in the waiting room
--- NOTE | 2019-11-20 14:09 | NUR ---
called for triage not in the waiting room
== END 2019-11-20 14:10 | disposition home or self-care (01) ==
LOC: ER 13:44
DX: Z53.21 Procedure and treatment not carried out due to patient leaving prior to being seen by health care provider (principal); Z59.0 Homelessness

== ENCOUNTER 2019-12-06 17:39 | Emergency (ER) | payer MEDICARE, OTHER ==
[~2019-12-06] VITALS: Ht 165.1 cm; Wt 68.0 kg
--- NOTE | 2019-12-06 18:13 | NUR ---
severe agitation; does not follow verbal commands Security called Restraints
[2019-12-06 18:19] LABS: BASOPHILS % (AUTO) 0.4 % (0.0-2.0); EOSINOPHILS % (AUTO) 0.9 % (0.0-6.0); HEMATOCRIT 39 % (33-45); HEMOGLOBIN 12.8 g/dL (11.5-14.8); LYMPHOCYTES # (AUTO) 1.1 /CMM (0.8-4.8); LYMPHOCYTES % (AUTO) 13.3 % (20.0-44.0); MEAN CORPUSCULAR HGB CONC 33 g/dl (31.0-36.0); MEAN CORPUSCULAR VOLUME 88 fL (82-100); MONOCYTES # (AUTO) 0.8 /CMM (0.1-1.30); MONOCYTES % (AUTO) 9.2 % (2.0-12.0); NEUTROPHILS # (AUTO) 6.3 /CMM (1.8-8.9); NEUTROPHILS % (AUTO) 76.2 % (43.0-81.0); PLATELET COUNT (AUTO) 177 /CMM (150-450); RED BLOOD CELL COUNT(AUTO) 4.45 MIL/uL (4.0-5.2); WHITE BLOOD COUNT (AUTO) 8.3 K/uL (4.3-11.0)
[2019-12-06 18:26] LABS: CALCIUM, SERUM 8.8 mg/dL (8.5-10.1); CARBON DIOXIDE 26 mmol/L (21-32); CHLORIDE 104 mmol/L (98-107); CREATININE 0.7 mg/dL (0.6-1.3); GLUCOSE 96 mg/dL (74-106); POTASSIUM 4.1 mmol/L (3.5-5.1); SODIUM SERUM 140 mmol/L (136-145); UREA NITROGEN, BLOOD 12 mg/dL (7-18)
[2019-12-06] MEDS ORDERED: OLANZAPINE 10 MG VIAL IM ONE ×2 (18:30→18:35)
[2019-12-06 18:40] LABS: ACETAMINOPHEN < 5 ug/ml (10-30); ALANINE AMINOTRANSFERASE 29 U/L (12-78); ALBUMIN 3.4 g/dL (3.4-5.0); ALCOHOL, BLOOD < 3 mg/dL (0-0); ALKALINE PHOSPHATASE 125 U/L (46-116); ASPARTATE AMINOTRANSFERASE 38 U/L (15-37); BILIRUBIN,DIRECT 0.1 mg/dL (0.0-0.2); BILIRUBIN,TOTAL 0.5 mg/dL (0.2-1.0); SALICYLATE 2.7 mg/dL (2.8-20.0); TOTAL PROTEIN, SERUM 6.9 g/dL (6.4-8.2)
--- NOTE | 2019-12-06 18:40 | NUR ---
pt agitated, per dr. wolf medicate with zyprexa
--- NOTE | 2019-12-06 18:43 | NUR ---
urine collected sent to lab
[2019-12-06 18:52] LABS: APPEARANCE,URINE Clear (CLEAR); BILIRUBIN,URINE Negative (NEGATIVE); BLOOD, URINE Negative Ery/uL (NEGATIVE); COLOR,URINE Yellow (YELLOW); KETONES,URINE Negative (NEGATIVE); LEUKOCYTE ESTERASE ,URINE Negative (NEGATIVE); NITRITE, URINE Negative (NEGATIVE); PROTEIN,URINE 100 mg/dl (NEGATIVE); UGLUCOSE Negative (NEGATIVE)
[2019-12-06] MEDS ORDERED: diphenhydrAMINE HCL 50 MG/ML VIAL ONE (19:45)
[2019-12-06] MEDS ORDERED: diphenhydrAMINE HCL 50 MG/ML VIAL IM ONE (20:00)
--- NOTE | 2019-12-06 20:20 | NUR ---
unable to do ct scan, unable to lay still per technology consultant. dr wolf aware. with orders for benadtryl
[2019-12-06] MEDS ORDERED: LORAZEPAM INJ 2 MG/ML VIAL ONE (20:36)
--- NOTE | 2019-12-06 20:39 | NUR ---
still unable to do ct scan, orders for ativan im.
[2019-12-06] MEDS ORDERED: LORAZEPAM INJ 2 MG/ML VIAL IM ONE (21:00)
--- NOTE | 2019-12-06 21:50 | NUR ---
Patient is resting comfortably in bed with eyes closed. Easily aroused. VSS
--- NOTE | 2019-12-06 21:50 | NUR ---
pt back to room, on monitor, awake, uncooperative, -sob, not in any distress, vss.
[2019-12-06 22:53] LABS: BACTERIA,URINE Few /HPF (None Seen); RBC,URINE 0-2 /HPF (0-2); SQUAMOUS EPITHELIAL CELL,UR Few /HPF (None Seen)
--- NOTE | 2019-12-06 23:10 | NUR ---
pt with sitter- vital signs stable. -sob at this time.
[2019-12-07] MEDS ORDERED: OLANZAPINE 10 MG VIAL IM ONE ×2 (00:24→00:30)
--- NOTE | 2019-12-07 01:31 | NUR ---
PT ON CONSTANT OBSERVATION W/ SITTER AT BEDSIDE. PT ASLEEP, VSS, NO ACUTE DISTRESS NOTED AT THIS TIME. WILL CONTINUE TO MONITOR
--- NOTE | 2019-12-07 03:05 | NUR ---
DR LEWIS AT BEDSIDE
--- NOTE | 2019-12-07 03:13 | NUR ---
ALEJANDRA OSBORNW PAGED FOR PSYCH EVAL.
--- NOTE | 2019-12-07 04:28 | NUR ---
PT ON CONSTANT OBSERVATION W/ SITTER AT BEDSIDE. PT ASLEEP, VSS, NO ACUTE DISTRESS NOTED AT THIS TIME. WILL CONTINUE TO MONITOR
--- NOTE | 2019-12-07 05:08 | NUR ---
PT ON CONSTANT OBSERVATION W/ SITTER AT BEDSIDE. PT ASLEEP, VSS, NO ACUTE DISTRESS NOTED AT THIS TIME. WILL CONTINUE TO MONITOR
--- NOTE | 2019-12-07 06:01 | NUR ---
Patient given written and verbal discharge instructions. Patient verbalizes understanding of instructions. Patient is ambulatory with steady gait. Refuses offer of senior living placement. Patient given list of available shelters in surrounding area. Pt refused to sign after care instructions and homeless waiver
[2019-12-07 06:04] VITALS: BP 148/84
== END 2019-12-07 06:05 | disposition home or self-care (01) ==
LOC: ER 17:40
DX: F28 Other psychotic disorder not due to a substance or known physiological condition (principal); K21.9 Gastro-esophageal reflux disease without esophagitis; F32.9 Major depressive disorder, single episode, unspecified; F43.10 Post-traumatic stress disorder, unspecified; F41.9 Anxiety disorder, unspecified; F20.0 Paranoid schizophrenia; F17.200 Nicotine dependence, unspecified, uncomplicated; Z98.890 Other specified postprocedural states; Z88.8 Allergy status to other drugs, medicaments and biological substances; Z88.2 Allergy status to sulfonamides; Z59.0 Homelessness; Z79.899 Other long term (current) drug therapy
CPT/HCPCS: 36415; 80048; 80076; 80305; 80307; 80329; 81001; 85025; 96372 ×3; 99285; G0480; J1200; J2060; J3490 ×2; 81000-TC

== ENCOUNTER 2019-12-18 11:33 | Emergency (ER) | payer MEDICARE ==
--- NOTE | 2019-12-18 12:00 | NUR ---
assumed care of pt. pt here for voluntary admission to psych. pt alert, pt not answering questions approprietly, -sob, -cp. vss, pending er provider chencho
--- NOTE | 2019-12-18 12:34 | NUR ---
urine collected and sent to lab
[2019-12-18 13:20] LABS: BASOPHILS % (AUTO) 0.3 % (0.0-2.0); EOSINOPHILS % (AUTO) 2.3 % (0.0-6.0); HEMATOCRIT 42 % (33-45); HEMOGLOBIN 13.9 g/dL (11.5-14.8); LYMPHOCYTES # (AUTO) 1.2 /CMM (0.8-4.8); LYMPHOCYTES % (AUTO) 22.6 % (20.0-44.0); MEAN CORPUSCULAR HGB CONC 33 g/dl (31.0-36.0); MEAN CORPUSCULAR VOLUME 90 fL (82-100); MONOCYTES # (AUTO) 0.4 /CMM (0.1-1.30); MONOCYTES % (AUTO) 7.6 % (2.0-12.0); NEUTROPHILS # (AUTO) 3.7 /CMM (1.8-8.9); NEUTROPHILS % (AUTO) 67.2 % (43.0-81.0); PLATELET COUNT (AUTO) 263 /CMM (150-450); RED BLOOD CELL COUNT(AUTO) 4.67 MIL/uL (4.0-5.2); WHITE BLOOD COUNT (AUTO) 5.5 K/uL (4.3-11.0)
--- NOTE | 2019-12-18 13:26 | NUR ---
Patient eloped from facility. ER Provider notified.
[2019-12-18 13:30] LABS: APPEARANCE,URINE Clear (CLEAR); BILIRUBIN,URINE SMALL (NEGATIVE); BLOOD, URINE Negative Ery/uL (NEGATIVE); COLOR,URINE Dark (YELLOW); KETONES,URINE Trace (NEGATIVE); LEUKOCYTE ESTERASE ,URINE Negative (NEGATIVE); NITRITE, URINE Negative (NEGATIVE); PROTEIN,URINE Negative (NEGATIVE); UGLUCOSE Negative (NEGATIVE)
[2019-12-18 13:35] LABS: CALCIUM, SERUM 9.5 mg/dL (8.5-10.1); CARBON DIOXIDE 30 mmol/L (21-32); CHLORIDE 100 mmol/L (98-107); CREATININE 0.6 mg/dL (0.6-1.3); GLUCOSE 103 mg/dL (74-106); POTASSIUM 3.6 mmol/L (3.5-5.1); SODIUM SERUM 139 mmol/L (136-145); UREA NITROGEN, BLOOD 17 mg/dL (7-18)
[2019-12-18 13:42] LABS: ALANINE AMINOTRANSFERASE 40 U/L (12-78); ALBUMIN 3.9 g/dL (3.4-5.0); ALCOHOL, BLOOD < 3 mg/dL (0-0); ALKALINE PHOSPHATASE 99 U/L (46-116); ASPARTATE AMINOTRANSFERASE 29 U/L (15-37); BILIRUBIN,DIRECT 0.1 mg/dL (0.0-0.2); BILIRUBIN,TOTAL 0.4 mg/dL (0.2-1.0); SALICYLATE 3.5 mg/dL (2.8-20.0); TOTAL PROTEIN, SERUM 7.5 g/dL (6.4-8.2)
[2019-12-18 13:43] LABS: ACETAMINOPHEN 0 ug/ml (10-30)
== END 2019-12-18 13:32 | disposition left against medical advice (07) ==
LOC: ER 11:39
DX: Z04.6 Encounter for general psychiatric examination, requested by authority (principal); F32.9 Major depressive disorder, single episode, unspecified; F43.10 Post-traumatic stress disorder, unspecified; K21.9 Gastro-esophageal reflux disease without esophagitis; F41.9 Anxiety disorder, unspecified; Z98.890 Other specified postprocedural states; F20.0 Paranoid schizophrenia; F17.200 Nicotine dependence, unspecified, uncomplicated; Z88.8 Allergy status to other drugs, medicaments and biological substances; Z88.2 Allergy status to sulfonamides; Z59.0 Homelessness; Z79.899 Other long term (current) drug therapy
CPT/HCPCS: 36415; 80048; 80076; 80305; 80307; 80329; 81001; 84703; 85025; 99283; G0480; 81000-TC

== ENCOUNTER 2020-01-06 17:58 | Emergency (ER) | payer MEDICARE ==
[~2020-01-06] VITALS: Ht 165.1 cm; Wt 81.6 kg
[2020-01-06 18:07] VITALS: BP 120/60
[2020-01-06 18:54] LABS: CALCIUM, SERUM 8.5 mg/dL (8.5-10.1); CARBON DIOXIDE 29 mmol/L (21-32); CHLORIDE 103 mmol/L (98-107); CREATININE 0.8 mg/dL (0.6-1.3); GLUCOSE 115 mg/dL (74-106); POTASSIUM 3.9 mmol/L (3.5-5.1); SODIUM SERUM 139 mmol/L (136-145); UREA NITROGEN, BLOOD 12 mg/dL (7-18)
[2020-01-06 18:59] LABS: ALANINE AMINOTRANSFERASE 37 U/L (12-78); ALBUMIN 3.2 g/dL (3.4-5.0); ALCOHOL, BLOOD < 3 mg/dL (0-0); ALKALINE PHOSPHATASE 101 U/L (46-116); ASPARTATE AMINOTRANSFERASE 36 U/L (15-37); BILIRUBIN,DIRECT 0.1 mg/dL (0.0-0.2); BILIRUBIN,TOTAL 0.2 mg/dL (0.2-1.0); SALICYLATE 3.3 mg/dL (2.8-20.0); TOTAL PROTEIN, SERUM 6.1 g/dL (6.4-8.2)
[2020-01-06 19:01] LABS: ACETAMINOPHEN 0 ug/ml (10-30)
--- NOTE | 2020-01-06 19:08 | NUR ---
Patient eloped from facility. ER MD notified. (Dr. Emerson)
== END 2020-01-06 19:10 | disposition left against medical advice (07) ==
LOC: ER 18:02
DX: R45.1 Restlessness and agitation (principal); F20.9 Schizophrenia, unspecified; K21.9 Gastro-esophageal reflux disease without esophagitis; F32.9 Major depressive disorder, single episode, unspecified; F41.9 Anxiety disorder, unspecified; F43.10 Post-traumatic stress disorder, unspecified; F17.200 Nicotine dependence, unspecified, uncomplicated; Z59.0 Homelessness; Z98.890 Other specified postprocedural states; Z88.8 Allergy status to other drugs, medicaments and biological substances; Z88.2 Allergy status to sulfonamides; Z79.899 Other long term (current) drug therapy
CPT/HCPCS: 36415; 80048; 80076; 80307; 80329; 99283; G0480

== ENCOUNTER 2020-01-12 12:49 | Emergency (ER) | payer MEDICARE ==
[~2020-01-12] VITALS: Ht 165.1 cm; Wt 65.8 kg
[2020-01-12] MEDS ORDERED: ACETAMINOPHEN ES 500 MG TABLET ONE (13:49)
[2020-01-12] MEDS: ACETAMINOPHEN ES 500 MG TABLET PO ONE (13:54)
--- NOTE | 2020-01-12 14:08 | NUR ---
SW Consult SW met with the pt due to a consult for homelessness and needing [place] [facility] [place] resources. SW met with the pt at Emergency Department bedside and the pt presented as alert and oriented x4 (time, place, self and situation). Pt appears to be disheveled and ungroomed. Pt appeared to be paranoid and appears to be responding to internal stimuli. Pt states, "They use me for my social security." Pt appears to be rambling and nonsensical. Pt was unable to maintain appropriate eye contact and the pts range of voice was low. Pt states that she is homeless and that she would like to go to [facility]. ANITA presented with her with homeless resources and faxed a referral packet to [facility] with attention to Mansoor to the fax number: [phone]. Plan: ANITA or porter sample case will follow up with the pts discharge.
[2020-01-12] MEDS ORDERED: OLANZAPINE 10 MG VIAL IM ONE (14:55)
[2020-01-12 14:57] LABS: BASOPHILS % (AUTO) 0.5 % (0.0-2.0); EOSINOPHILS % (AUTO) 1.9 % (0.0-6.0); HEMATOCRIT 38 % (33-45); HEMOGLOBIN 12.8 g/dL (11.5-14.8); LYMPHOCYTES # (AUTO) 1.3 /CMM (0.8-4.8); LYMPHOCYTES % (AUTO) 22.2 % (20.0-44.0); MEAN CORPUSCULAR HGB CONC 34 g/dl (31.0-36.0); MEAN CORPUSCULAR VOLUME 88 fL (82-100); MONOCYTES # (AUTO) 0.6 /CMM (0.1-1.30); NEUTROPHILS # (AUTO) 3.9 /CMM (1.8-8.9); NEUTROPHILS % (AUTO) 65.4 % (43.0-81.0); PLATELET COUNT (AUTO) 179 /CMM (150-450); RED BLOOD CELL COUNT(AUTO) 4.33 MIL/uL (4.0-5.2)
[2020-01-12] MEDS ORDERED: OLANZAPINE 5 MG TABLET PO ONE (15:00)
--- NOTE | 2020-01-12 15:09 | NUR ---
Pt eloped from the facility and refused placement to prison or psych facility
[2020-01-12 15:11] VITALS: BP 121/69
[2020-01-12 15:16] LABS: ACETAMINOPHEN 5 ug/ml (10-30); ALANINE AMINOTRANSFERASE 45 U/L (12-78); ALBUMIN 3.3 g/dL (3.4-5.0); ALCOHOL, BLOOD < 3 mg/dL (0-0); ALKALINE PHOSPHATASE 104 U/L (46-116); ASPARTATE AMINOTRANSFERASE 43 U/L (15-37); BILIRUBIN,DIRECT 0.1 mg/dL (0.0-0.2); BILIRUBIN,TOTAL 0.6 mg/dL (0.2-1.0); CALCIUM, SERUM 8.8 mg/dL (8.5-10.1); CARBON DIOXIDE 32 mmol/L (21-32); CHLORIDE 103 mmol/L (98-107); CREATININE 0.7 mg/dL (0.6-1.3); GLUCOSE 123 mg/dL (74-106); POTASSIUM 3.9 mmol/L (3.5-5.1); SODIUM SERUM 140 mmol/L (136-145); TOTAL PROTEIN, SERUM 6.6 g/dL (6.4-8.2); UREA NITROGEN, BLOOD 26 mg/dL (7-18)
[2020-01-12 15:18] LABS: SALICYLATE 2.6 mg/dL (2.8-20.0)
== END 2020-01-12 15:11 | disposition home or self-care (01) ==
LOC: ER 12:50
DX: S00.03XA Contusion of scalp, initial encounter (principal); R45.1 Restlessness and agitation; F20.9 Schizophrenia, unspecified; K21.9 Gastro-esophageal reflux disease without esophagitis; F32.9 Major depressive disorder, single episode, unspecified; F41.9 Anxiety disorder, unspecified; F17.200 Nicotine dependence, unspecified, uncomplicated; Z59.0 Homelessness; Z98.890 Other specified postprocedural states; Z88.8 Allergy status to other drugs, medicaments and biological substances; Z88.2 Allergy status to sulfonamides; Z60.2 Problems related to living alone; Z79.899 Other long term (current) drug therapy; W01.0XXA Fall on same level from slipping, tripping and stumbling without subsequent striking against object, initial encounter; Y93.89 Activity, other specified; Y92.89 Other specified places as the place of occurrence of the external cause; Y99.8 Other external cause status
CPT/HCPCS: 36415; 70450; 80048; 80076; 80307; 80329; 85025; 99284; G0480; J3490

== ENCOUNTER 2020-01-15 12:57 | Emergency (ER) | payer MEDICARE ==
[~2020-01-15] VITALS: Ht 160 cm; Wt 56.2 kg
--- NOTE | 2020-01-15 13:01 | NUR ---
Pt called to triage, pt not in waiting room
[2020-01-15] MEDS ORDERED: OLANZAPINE 10 MG VIAL IM ONE ×4 (13:55→15:00)
[2020-01-15] MEDS ORDERED: LORAZEPAM INJ 2 MG/ML VIAL ONE (13:58)
[2020-01-15] MEDS ORDERED: LORAZEPAM INJ 2 MG/ML VIAL IM ONE ×2 (14:00→15:00)
[2020-01-15 14:16] LABS: BASOPHILS % (AUTO) 0.4 % (0.0-2.0); HEMATOCRIT 45 % (33-45); HEMOGLOBIN 14.7 g/dL (11.5-14.8); LYMPHOCYTES # (AUTO) 1.6 /CMM (0.8-4.8); LYMPHOCYTES % (AUTO) 23.8 % (20.0-44.0); MEAN CORPUSCULAR HGB CONC 33 g/dl (31.0-36.0); MEAN CORPUSCULAR VOLUME 89 fL (82-100); MONOCYTES # (AUTO) 0.6 /CMM (0.1-1.30); MONOCYTES % (AUTO) 8.6 % (2.0-12.0); NEUTROPHILS # (AUTO) 4.3 /CMM (1.8-8.9); NEUTROPHILS % (AUTO) 66.2 % (43.0-81.0); PLATELET COUNT (AUTO) 207 /CMM (150-450); RED BLOOD CELL COUNT(AUTO) 5.01 MIL/uL (4.0-5.2); WHITE BLOOD COUNT (AUTO) 6.5 K/uL (4.3-11.0)
[2020-01-15 14:28] LABS: CALCIUM, SERUM 9.5 mg/dL (8.5-10.1); CREATININE 0.7 mg/dL (0.6-1.3); POTASSIUM 4.2 mmol/L (3.5-5.1)
--- NOTE | 2020-01-15 14:30 | NUR ---
BIBS. TO ER BED 12. AAOX4. NOT IN RESP DISTRESS. AMBULATORY. CAME IN FOR SI AND HI - NO PLAN VERBALIZED. ASKING FOR MEDICAL CLEARANCE FOR VOLUNTARY ADMISSION AT [facility]. PT IS AGITATED AND YELLING. PLACED ON RESTRAINT. WAS AT BESIDE FOR EVAL. WILL CONTINUE TO MONITOR PT
[2020-01-15 14:33] LABS: ALBUMIN 4.1 g/dL (3.4-5.0); BILIRUBIN,DIRECT 0.1 mg/dL (0.0-0.2); BILIRUBIN,TOTAL 0.4 mg/dL (0.2-1.0); SALICYLATE 3.6 mg/dL (2.8-20.0); TOTAL PROTEIN, SERUM 8.1 g/dL (6.4-8.2)
[2020-01-15] MEDS ORDERED: KETAMINE HCL (500MG/10ML) 50 MG/ML VIAL ONE (15:08)
[2020-01-15] MEDS ORDERED: KETAMINE HCL(200MG/20ML) 10 MG/ML VIAL IM ONE ×2 (15:30)
--- NOTE | 2020-01-15 16:12 | NUR ---
PT IS CALM AND SLEEPING. NAD NOTED. VSS
[2020-01-15 21:09] LABS: APPEARANCE,URINE Slightly Cloudy (CLEAR); BILIRUBIN,URINE Negative (NEGATIVE); BLOOD, URINE Negative Ery/uL (NEGATIVE); COLOR,URINE Other (YELLOW); KETONES,URINE Negative (NEGATIVE); LEUKOCYTE ESTERASE ,URINE Negative (NEGATIVE); NITRITE, URINE Negative (NEGATIVE); PH,URINE 6.5 (5.0-8.0); PROTEIN,URINE Negative (NEGATIVE); UGLUCOSE Negative (NEGATIVE); UROBILINOGEN,URINE 0.2 EU/dL (0.2)
--- NOTE | 2020-01-15 21:12 | NUR ---
URINE COLLECTED. PT AMBULATED TO BATHROOM ON STEADY GAIT W/O ASSIST.
--- NOTE | 2020-01-15 22:51 | NUR ---
PT AWAKE, DENIES SI/HI AT THIS TIME. AMBULATORY WITH STEADY GAIT TO RESTROOM.
--- NOTE | 2020-01-15 23:31 | NUR ---
PT IS AWAKE. PT DENIED BEING SUICIDAL. PT AMBULATES ON STEADY GAIT W/O ASSIST
--- NOTE | 2020-01-16 00:15 | NUR ---
PT MEDICALLY CLEARED FOR DISCHARGE. BECAME AGGRESIVE TOWARD STAFF UPON DISCHARGE. SECURITY AT BEDSIDE. Patient given written and verbal discharge instructions. Patient verbalizes understanding of instructions. Patient is ambulatory with steady gait. Refuses offer of intermediate placement. Patient given list of available shelters in surrounding area.
[2020-01-16 00:31] VITALS: BP 128/75
== END 2020-01-16 00:32 | disposition home or self-care (01) ==
LOC: ER 12:59
DX: R45.1 Restlessness and agitation (principal); F20.0 Paranoid schizophrenia; R45.851 Suicidal ideations; K21.9 Gastro-esophageal reflux disease without esophagitis; F41.9 Anxiety disorder, unspecified; F31.9 Bipolar disorder, unspecified; Z91.14 Patient's other noncompliance with medication regimen; Z59.0 Homelessness; Z98.890 Other specified postprocedural states; Z88.8 Allergy status to other drugs, medicaments and biological substances; Z88.2 Allergy status to sulfonamides; Z60.2 Problems related to living alone; Z79.899 Other long term (current) drug therapy
CPT/HCPCS: 36415; 80048; 80076; 80305; 80307; 80329; 81001; 85025; 96372 ×2; 99285; G0480; J2060; J3490 ×3; 81000-TC

== ENCOUNTER → 2020-01-19 | Emergency (ER) | payer MEDICARE ==
--- NOTE | 2020-01-19 16:54 | NUR ---
Pt left without being seen
== END | disposition left against medical advice (07) ==
LOC: ER 16:21
DX: Z53.21 Procedure and treatment not carried out due to patient leaving prior to being seen by health care provider (principal)

== ENCOUNTER 2020-01-30 16:05 | Emergency (ER) | payer MEDICARE ==
[~2020-01-30] VITALS: Ht 165.1 cm; Wt 61.2 kg
--- NOTE | 2020-01-30 16:10 | NUR ---
PT BIBRA AND [employer] FROM THE STREET C/O BIZARRE BEHAVIOR AND TRYING TO STAB BY STANDER, PT IS AAOX2, NOT IN RESPIRATORY DISTRESS, HOOKED TO MONITOR, KEPT RESTED AND COMFORTABLE, WILL CONTINUE TO MONITOR.
--- NOTE | 2020-01-30 16:15 | NUR ---
SEEN AND EXAMINED BY .
--- NOTE | 2020-01-30 16:25 | NUR ---
URINE SPECIMEN COLLECTED AND SENT TO LAB.
[2020-01-30] MEDS ORDERED: HALOPERIDOL LACTATE INJ 5 MG/ML VIAL ONE (16:26)
[2020-01-30] MEDS ORDERED: diphenhydrAMINE HCL 50 MG/ML VIAL ONE (16:26)
[2020-01-30] MEDS ORDERED: HALOPERIDOL LACTATE INJ 5 MG/ML VIAL IM ONE (16:30)
[2020-01-30] MEDS ORDERED: diphenhydrAMINE HCL 50 MG/ML VIAL IM ONE (16:30)
--- NOTE | 2020-01-30 16:45 | NUR ---
ER PHLEB AT BEDSIDE FOR BLOOD DRAW
[2020-01-30 16:56] LABS: BASOPHILS % (AUTO) 0.5 % (0.0-2.0); EOSINOPHILS % (AUTO) 2.6 % (0.0-6.0); HEMATOCRIT 42 % (33-45); HEMOGLOBIN 13.9 g/dL (11.5-14.8); LYMPHOCYTES # (AUTO) 0.9 /CMM (0.8-4.8); LYMPHOCYTES % (AUTO) 10.9 % (20.0-44.0); MEAN CORPUSCULAR HGB CONC 34 g/dl (31.0-36.0); MEAN CORPUSCULAR VOLUME 89 fL (82-100); MONOCYTES # (AUTO) 0.7 /CMM (0.1-1.30); MONOCYTES % (AUTO) 8.5 % (2.0-12.0); NEUTROPHILS # (AUTO) 6.7 /CMM (1.8-8.9); NEUTROPHILS % (AUTO) 77.5 % (43.0-81.0); PLATELET COUNT (AUTO) 206 /CMM (150-450); RED BLOOD CELL COUNT(AUTO) 4.69 MIL/uL (4.0-5.2); WHITE BLOOD COUNT (AUTO) 8.6 K/uL (4.3-11.0)
[2020-01-30 17:05] LABS: CALCIUM, SERUM 9.3 mg/dL (8.5-10.1); CARBON DIOXIDE 27 mmol/L (21-32); CHLORIDE 102 mmol/L (98-107); CREATININE 0.9 mg/dL (0.6-1.3); GLUCOSE 92 mg/dL (74-106); POTASSIUM 3.9 mmol/L (3.5-5.1); SODIUM SERUM 139 mmol/L (136-145); UREA NITROGEN, BLOOD 25 mg/dL (7-18)
[2020-01-30 17:11] LABS: APPEARANCE,URINE Clear (CLEAR); BILIRUBIN,URINE SMALL (NEGATIVE); BLOOD, URINE Negative Ery/uL (NEGATIVE); COLOR,URINE Yellow (YELLOW); KETONES,URINE Negative (NEGATIVE); LEUKOCYTE ESTERASE ,URINE Negative (NEGATIVE); NITRITE, URINE Negative (NEGATIVE); PROTEIN,URINE 100 mg/dl (NEGATIVE); UGLUCOSE Negative (NEGATIVE); UROBILINOGEN,URINE 0.2 EU/dL (0.2)
[2020-01-30 17:11] LABS: ALANINE AMINOTRANSFERASE 32 U/L (12-78); ALBUMIN 4.1 g/dL (3.4-5.0); ALCOHOL, BLOOD < 3 mg/dL (0-0); ALKALINE PHOSPHATASE 127 U/L (46-116); ASPARTATE AMINOTRANSFERASE 33 U/L (15-37); BILIRUBIN,DIRECT 0.2 mg/dL (0.0-0.2); BILIRUBIN,TOTAL 0.7 mg/dL (0.2-1.0); SALICYLATE 2.8 mg/dL (2.8-20.0); TOTAL PROTEIN, SERUM 7.7 g/dL (6.4-8.2)
[2020-01-30 17:18] LABS: ACETAMINOPHEN < 2 ug/ml (10-30)
[2020-01-30 17:23] LABS: BACTERIA,URINE Few /HPF (None Seen); RBC,URINE NONE SEEN /HPF (0-2); SQUAMOUS EPITHELIAL CELL,UR Few /HPF (None Seen); WBC,URINE NONE SEEN /HPF (0-3)
[2020-01-30] MEDS ORDERED: LORAZEPAM INJ 2 MG/ML VIAL IM ONE (17:30)
[2020-01-30] MEDS ORDERED: LORAZEPAM INJ 2 MG/ML VIAL ONE (17:30)
[2020-01-30 17:53] LABS: CREATINE KINASE, TOTAL 248 U/L (26-192)
--- NOTE | 2020-01-30 19:06 | NUR ---
REPORT GIVEN TO FAITH GUEVARA FOR JULISSA.
--- NOTE | 2020-01-30 19:36 | NUR ---
TOO OVER PATIENT CARE. PT PLACED ON MONITOR AND PULSE OX. VSS. PT ASLEEP.
--- NOTE | 2020-01-30 22:45 | NUR ---
Patient is resting comfortably in bed with eyes closed. Easily aroused. VSS.
--- NOTE | 2020-01-30 23:56 | NUR ---
ART, VETERINARY PRACTICE MANAGER AT BEDSIDE FOR EVALUATION
--- NOTE | 2020-01-31 02:17 | NUR ---
PT RESTING COMFORTABLY IN BED. VITAL SIGNS STABLE. NO ACUTE DISTRESS NOTED AT THIS TIME. PT PROVIDED WITH SANDWICH AND WATER PER REQUEST. WILL CONTINUE TO MONITOR
--- NOTE | 2020-01-31 05:50 | NUR ---
Patient discharged to home in stable condition. Written and verbal after care instructions given. Patient verbalizes understanding of instruction. Pt ambulated with steady gait. Pt signed homeless discharge.
[2020-01-31 05:51] VITALS: BP 121/72
== END 2020-01-31 05:51 | disposition home or self-care (01) ==
LOC: ER 16:06
DX: F29 Unspecified psychosis not due to a substance or known physiological condition (principal); F15.10 Other stimulant abuse, uncomplicated; K21.9 Gastro-esophageal reflux disease without esophagitis; F31.9 Bipolar disorder, unspecified; F41.9 Anxiety disorder, unspecified; F20.0 Paranoid schizophrenia; Z98.890 Other specified postprocedural states; Z88.2 Allergy status to sulfonamides; Z88.8 Allergy status to other drugs, medicaments and biological substances; Z60.2 Problems related to living alone; Z79.899 Other long term (current) drug therapy
CPT/HCPCS: 36415; 80048; 80076; 80305; 80307; 80329; 81001; 82550; 82553; 84702; 85025; 96372 ×3; 99285; G0480; J1200; J1630; J2060; 81000-TC

== ENCOUNTER 2020-09-18 10:06 | Emergency (ER) | payer MEDICARE, MEDICAID ==
[~2020-09-18] VITALS: Ht 165.1 cm; Wt 61.2 kg
--- NOTE | 2020-09-18 10:30 | NUR ---
ASSUME PT CARE. AMBULATORY W/ STEADY GAIT. REQUESTING FOR VOLUNTARY PSYCH ADMISSION TO [facility]. PT IS SUICIDAL W/ PLAN TO RUN THROUGH TRAFFIC. PT IS SEEN IN ED MULTIPLE TIME FOR SAME COMPLAINT. STABLE VITALS. AWAITING MD HURST.
--- NOTE | 2020-09-18 10:31 | NUR ---
DR UGALDE AT BEDSIDE FOR EVAL.
--- NOTE | 2020-09-18 10:33 | NUR ---
PRODUCT SAFETY PROFESSIONAL AT BEDSIDE FOR BLOOD DRAW.
[2020-09-18 10:47] LABS: BASOPHILS % (AUTO) 0.5 % (0.0-2.0); EOSINOPHILS % (AUTO) 1.1 % (0.0-6.0); HEMATOCRIT 42 % (33-45); LYMPHOCYTES # (AUTO) 1.2 /CMM (0.8-4.8); LYMPHOCYTES % (AUTO) 28.2 % (20.0-44.0); MEAN CORPUSCULAR HGB CONC 34 g/dl (31.0-36.0); MEAN CORPUSCULAR VOLUME 94 fL (82-100); MONOCYTES # (AUTO) 0.4 /CMM (0.1-1.30); MONOCYTES % (AUTO) 8.6 % (2.0-12.0); NEUTROPHILS # (AUTO) 2.6 /CMM (1.8-8.9); NEUTROPHILS % (AUTO) 61.6 % (43.0-81.0); PLATELET COUNT (AUTO) 197 /CMM (150-450); RED BLOOD CELL COUNT(AUTO) 4.42 MIL/uL (4.0-5.2); WHITE BLOOD COUNT (AUTO) 4.3 K/uL (4.3-11.0)
[2020-09-18 11:05] LABS: BILIRUBIN,URINE NEGATIVE (NEGATIVE); BLOOD, URINE NEGATIVE Ery/uL (NEGATIVE); COLOR,URINE YELLOW (YELLOW); LEUKOCYTE ESTERASE ,URINE TRACE (NEGATIVE); NITRITE, URINE NEGATIVE (NEGATIVE); PROTEIN,URINE NEGATIVE (NEGATIVE); UGLUCOSE NEGATIVE (NEGATIVE); UROBILINOGEN,URINE 0.2 EU/dL (0.2)
[2020-09-18 11:11] LABS: CALCIUM, SERUM 9.2 mg/dL (8.5-10.1); CARBON DIOXIDE 30 mmol/L (21-32); CHLORIDE 103 mmol/L (98-107); CREATININE 0.4 mg/dL (0.6-1.3); GLUCOSE 98 mg/dL (74-106); POTASSIUM 3.8 mmol/L (3.5-5.1); SODIUM SERUM 140 mmol/L (136-145); UREA NITROGEN, BLOOD 10 mg/dL (7-18)
[2020-09-18 11:13] LABS: ALANINE AMINOTRANSFERASE 19 U/L (12-78); ALBUMIN 3.7 g/dL (3.4-5.0); ALCOHOL, BLOOD < 3 mg/dL (0-0); ALKALINE PHOSPHATASE 115 U/L (46-116); ASPARTATE AMINOTRANSFERASE 17 U/L (15-37); BILIRUBIN,DIRECT 0.2 mg/dL (0.0-0.2); BILIRUBIN,TOTAL 0.5 mg/dL (0.2-1.0); TOTAL PROTEIN, SERUM 7.3 g/dL (6.4-8.2)
[2020-09-18 11:16] LABS: ACETAMINOPHEN < 10 ug/ml (10-30)
[2020-09-18 11:37] LABS: BACTERIA,URINE Rare /HPF (None Seen); RBC,URINE 0-2 /HPF (0-2); SQUAMOUS EPITHELIAL CELL,UR Rare /HPF (None Seen); WBC,URINE 0-2 /HPF (0-3)
--- NOTE | 2020-09-18 13:18 | NUR ---
LAB CALLED PT IS COVID NEGATIVE
--- NOTE | 2020-09-18 14:16 | NUR ---
SW met with the patient at bedside. Patient is a 50 year-old female.Patient is alert and oriented x4. Patient asked this SW regarding food and socks. SW informed patient she would notify ED team to order warm food and provide socks following this assessment. Patient was agreeable to this plan. Patient presented to [facility] ED wanting to be referred to [facility] for voluntary psychiatric hospitalization. Patient presents with suicidal ideation with no plan at this time. Patient reports a history of Depression, PTSD, Bipolar, Anxiety, and Schizophrenia. Patient did not want to report if she is taking medications. Patient denied the use of alcohol, drug, and cigarettes to this SW and patient labs confirmed this as she tested negative for these substances. Patient and SW discussed voluntary psychiatric hospitalization and patient remained in agreement. Patient denied auditory and visual hallucinations. Patient denied homicidal ideations. Patient was calm and cooperative throughout this assessment. Patient's speech was clear and concise. Plan: This SW to fax clinicals to Mansoor (cell) at [facility] Intake, fax number . This social welfare administrator will wait to hear back from [facility] intake regarding status of referral. This social welfare administrator will follow-up with [facility] if status update is not provided. Once accepted, patient to be transferred to [facility] by ambulance. SW notified field artillery targeting technician Oscar to assist this SW in providing a warm meal and socks to this patient. SW will remain available for all needs regarding this patient.
--- NOTE | 2020-09-18 14:21 | NUR ---
This SW faxed clinicals [facility] Intake, fax number . ANITA also notified Mansoor (cell) at [facility] regarding this referral.
[2020-09-18 14:35] VITALS: BP 138/82
--- NOTE | 2020-09-18 18:58 | NUR ---
PT NO LONGER AT ROOM. ELOPED.
== END 2020-09-18 19:00 | disposition left against medical advice (07) ==
LOC: ER 10:14
DX: F31.9 Bipolar disorder, unspecified (principal); R45.851 Suicidal ideations; F20.0 Paranoid schizophrenia; Z59.0 Homelessness; Z79.899 Other long term (current) drug therapy; Z88.2 Allergy status to sulfonamides; K21.9 Gastro-esophageal reflux disease without esophagitis; F43.10 Post-traumatic stress disorder, unspecified; Z82.49 Family history of ischemic heart disease and other diseases of the circulatory system; Z20.828 Contact with and (suspected) exposure to other viral communicable diseases
CPT/HCPCS: 36415; 80048-TC; 80076-TC; 81001; 85025-TC; C9803; G0480

== ENCOUNTER 2020-09-19 09:57 | Emergency (ER) | payer MEDICARE, MEDICAID ==
[~2020-09-19] VITALS: Ht 162.6 cm; Wt 70.0 kg
[2020-09-19 10:30] VITALS: BP 119/89
== END 2020-09-19 11:07 | disposition home or self-care (01) ==
LOC: ER 09:59
DX: J45.909 Unspecified asthma, uncomplicated (principal); R06.02 Shortness of breath; E78.5 Hyperlipidemia, unspecified; K21.9 Gastro-esophageal reflux disease without esophagitis; F41.9 Anxiety disorder, unspecified; F31.9 Bipolar disorder, unspecified; F20.0 Paranoid schizophrenia; Z76.0 Encounter for issue of repeat prescription; Z98.890 Other specified postprocedural states; Z88.2 Allergy status to sulfonamides; Z88.8 Allergy status to other drugs, medicaments and biological substances; Z60.2 Problems related to living alone; Z79.899 Other long term (current) drug therapy

== ENCOUNTER 2020-10-25 09:15 | Emergency (ER) | payer OTHER, MEDICARE ==
[~2020-10-25] VITALS: Ht 167.6 cm; Wt 59.0 kg
[2020-10-25 09:19] VITALS: BP 136/76
--- NOTE | 2020-10-25 09:37 | NUR ---
PT IS MEDICALLY CLEARED FOR BOOKING. RELEASED UNDER THE CARE OF JOHNNY. PT IS AMBULATORY AND ON HANDCUFFS. PT IS IN STABLE CONDITION.
== END 2020-10-25 09:39 ==
LOC: ER 09:17
DX: Z02.89 Encounter for other administrative examinations (principal); S01.21XD Laceration without foreign body of nose, subsequent encounter; E78.5 Hyperlipidemia, unspecified; J45.909 Unspecified asthma, uncomplicated; K21.9 Gastro-esophageal reflux disease without esophagitis; F32.9 Major depressive disorder, single episode, unspecified; F41.9 Anxiety disorder, unspecified; F43.10 Post-traumatic stress disorder, unspecified; F20.0 Paranoid schizophrenia; Z98.890 Other specified postprocedural states; Z88.2 Allergy status to sulfonamides; Z88.8 Allergy status to other drugs, medicaments and biological substances; Z60.2 Problems related to living alone; Z79.899 Other long term (current) drug therapy; X58.XXXD Exposure to other specified factors, subsequent encounter

== ENCOUNTER 2020-12-10 17:11 | Emergency (ER) | payer MEDICARE, OTHER ==
[~2020-12-10] VITALS: Ht 167.6 cm; Wt 61.2 kg
[2020-12-10 17:15] VITALS: BP 124/63
--- NOTE | 2020-12-10 17:22 | NUR ---
SEEN AND EXAMINED BY OSIEL GEORGE NP.
--- NOTE | 2020-12-10 17:25 | NUR ---
URINE SPECIMEN COLLECTED AND SENT TO LAB.
[2020-12-10 17:56] LABS: BILIRUBIN,URINE Negative (NEGATIVE); COLOR,URINE YELLOW (YELLOW); LEUKOCYTE ESTERASE ,URINE Negative (NEGATIVE); NITRITE, URINE Negative (NEGATIVE); PH,URINE 5.5 (5.0-8.0); PROTEIN,URINE Negative (NEGATIVE); UGLUCOSE Negative (NEGATIVE); UROBILINOGEN,URINE 0.2 EU/dL (0.2)
--- NOTE | 2020-12-10 19:36 | NUR ---
CALLED PT FOR BED AVAILABILITY PT NOT IN WAITING ROOM. PT ELOPED.
== END 2020-12-10 19:36 | disposition left against medical advice (07) ==
LOC: ER 17:13
DX: R30.0 Dysuria (principal); Z53.21 Procedure and treatment not carried out due to patient leaving prior to being seen by health care provider
CPT/HCPCS: 84703-TC

== ENCOUNTER 2021-01-26 23:46 | Emergency (ER) | payer MEDICARE, OTHER ==
[~2021-01-26] VITALS: Ht 167.6 cm; Wt 59.0 kg
[2021-01-27 00:02] VITALS: BP 160/88
[2021-01-27 00:43] LABS: BILIRUBIN,URINE NEGATIVE (NEGATIVE); COLOR,URINE YELLOW (YELLOW); LEUKOCYTE ESTERASE ,URINE NEGATIVE (NEGATIVE); NITRITE, URINE NEGATIVE (NEGATIVE); PROTEIN,URINE NEGATIVE (NEGATIVE); UGLUCOSE NEGATIVE (NEGATIVE)
[2021-01-27 00:51] LABS: BACTERIA,URINE Many /HPF (None Seen); RBC,URINE 0-2 /HPF (0-2); SQUAMOUS EPITHELIAL CELL,UR Many /HPF (None Seen); WBC,URINE 0-2 /HPF (0-3)
[2021-01-27] MEDS ORDERED: FLUCONAZOLE (100 MG) 100 MG TABLET PO ONE (01:30)
[2021-01-27] MEDS ORDERED: FLUCONAZOLE (100 MG) 100 MG TABLET ONE (02:21)
== END 2021-01-27 02:22 | disposition home or self-care (01) ==
LOC: ER 23:48
DX: N76.0 Acute vaginitis (principal); R30.0 Dysuria; E78.5 Hyperlipidemia, unspecified; J45.909 Unspecified asthma, uncomplicated; K21.9 Gastro-esophageal reflux disease without esophagitis; F32.9 Major depressive disorder, single episode, unspecified; F43.10 Post-traumatic stress disorder, unspecified; F41.9 Anxiety disorder, unspecified; F20.0 Paranoid schizophrenia; Z98.890 Other specified postprocedural states; Z88.8 Allergy status to other drugs, medicaments and biological substances; Z88.2 Allergy status to sulfonamides; Z60.2 Problems related to living alone; Z79.899 Other long term (current) drug therapy
CPT/HCPCS: 81001; 84703-TC; 87086-TC